=== PATIENT | female | born 1970 | race Two or more races ===

== ENCOUNTER 2017-05-17 21:39 | Emergency (ER) | payer OTHER ==
[~2017-05-17] VITALS: Ht 144.8 cm; Wt 68.0 kg
[~2017-05-17 21:39] MED LIST: cloNIDine HCL 0.1 MG TAB ONE
[2017-05-17] MEDS ORDERED: cloNIDine HCL 0.1 MG TAB PO ONE (22:00)
[2017-05-17 22:10] LABS: Basophils # (auto) 0 uL; Basophils % (auto) 0.6 % (0.0-2.0); Eosinophils # (auto) 0.1 uL; Eosinophils % (auto) 0.7 % (0.0-7.0); Hemoglobin 14.1 g/dL (12.2-16.2); Lymphocytes # (auto) 3.3 uL; Lymphocytes % (auto) 46.6 % (10.0-50.0); Mean Corpuscular Hemoglobin 30.4 pg (28.0-32.0); Mean Corpuscular Hgb Conc. 34.4 g/dL (32.0-36.0); Mean Corpuscular Volume 88.6 fL (80.0-100.0); Mean Platelet Volume 7.9 fL (6.9-10.8); Monocytes # (auto) 0.5 uL; Monocytes % (auto) 7.5 % (0.0-12.0); Neutrophils # (auto) 3.2 uL; Neutrophils % (auto) 44.6 % (37.0-80.0); Nucleated Red Blood Cells % 0.2 %; Platelet Count (auto) 269 10^3/uL (140-450); Red Cell Distribution Width 13.6 % (11.8-14.3); White Blood Cell 7.1 10^3/uL (4.4-10.8)
[2017-05-17 22:37] LABS: Albumin 3.8 g/dL (3.4-5.0); Alkaline Phosphatase 150 U/L (45-117); Anion Gap 13 (5-15); Aspartate Aminotransferase 30 U/L (15-37); BUN/Creatinine Ratio 26.5; Bilirubin, Total 0.2 mg/dL (0.2-1.0); Blood Urea Nitrogen 18 mg/dL (7-18); Calcium 8.6 mg/dL (8.5-10.1); Carbon Dioxide 20 mmol/L (21-32); Chloride 106 mmol/L (98-107); GFR African American 118 mL/min; GFR Non-African American 98 mL/min; Glucose 137 mg/dL (74-106); Magnesium 2.1 mg/dL (1.6-2.6); Potassium 3.5 mmol/L (3.5-5.1); Sodium 139 mmol/L (136-145); Total Protein 8.2 g/dL (6.4-8.2)
[2017-05-18 02:34] VITALS: BP 137/77
== END 2017-05-18 06:13 | disposition home or self-care (01) ==
LOC: ER 21:39
DX: R07.89 Other chest pain (principal); I10 Essential (primary) hypertension
CPT/HCPCS: 36415; 71010; 80053; 83735; 84484; 84702; 85025; 93005

== ENCOUNTER 2023-01-29 00:31 | Emergency (ER) | payer OTHER ==
[~2023-01-29] VITALS: Ht 144.8 cm; Wt 60.2 kg
[2023-01-29] MEDS ORDERED: amLODIPine BESYLATE 5 MG TAB PO ONE ×2 (01:00→02:30)
[2023-01-29 01:02] LABS: Basophils # (auto) 0 10 ^3/uL (0-0.2); Basophils % (auto) 0.3 % (0.0-2.0); Eosinophils # (auto) 0.1 10 ^3/uL (0-0.8); Eosinophils % (auto) 0.9 % (0.0-7.0); Hematocrit 39.4 % (36.0-46.0); Hemoglobin 13.4 g/dL (12.2-16.2); Lymphocytes % (auto) 35.2 % (10.0-50.0); Mean Corpuscular Hemoglobin 30.1 pg (28.0-32.0); Mean Corpuscular Volume 88.8 fL (80.0-100.0); Monocytes # (auto) 0.7 10 ^3/uL (0-1.3); Monocytes % (auto) 8.2 % (0.0-12.0); Neutrophils # (auto) 4.7 10 ^3/uL (1.6-8.6); Neutrophils % (auto) 55.4 % (37.0-80.0); Nucleated Red Blood Cells % 0.2 %; Red Blood Cells 4.43 10^6/uL (4.0-5.20); Red Cell Distribution Width 13.6 % (11.8-14.3); White Blood Cell 8.6 10^3/uL (4.4-10.8)
[2023-01-29 01:19] LABS: Albumin 3.7 g/dL (3.4-5.0); Calcium 9.8 mg/dL (8.5-10.1); Potassium 3.6 mmol/L (3.5-5.1)
[2023-01-29 01:21] VITALS: PULSE 75; RESP 75; TEMP 98.3; O2SAT 95
[2023-01-29 01:24] LABS: Bilirubin, Total 0.2 mg/dL (0.2-1.0)
[2023-01-29] MEDS ORDERED: HYDROmorphone HCL 2 MG/ML VL/or syr IV ONE (01:30)
[2023-01-29] MEDS ORDERED: ONDANSETRON HCL 4 MG/2 ML VIAL IV ONE (01:30)
[2023-01-29] MEDS ORDERED: ASPirin 81 mg TAB PO ONE (01:30)
[2023-01-29 04:00] VITALS: BP 157/79; PULSE 66; RESP 16; O2SAT 95
== END 2023-01-29 04:29 | disposition home or self-care (01) ==
LOC: ER 00:33
DX: I10 Essential (primary) hypertension (principal)
CPT/HCPCS: 36415; 71045; 80053; 82962; 83880; 84484; 85025; 93005; 96374; 96375; 99285; J1170; J2405

== ENCOUNTER 2024-05-13 06:02 | Inpatient (IN) | payer OTHER ==
[~2024-05-13] VITALS: Ht 144.8 cm; Wt 61.6 kg
[2024-05-13] VITALS (8 sets, daily range): BP systolic 134–167; BP diastolic 60–76; PULSE 62–79; RESP 16–18; TEMP 97.7–98.3; O2SAT 94–100
--- NOTE | 2024-05-13 06:41 | ED.PDOC ---
GI ASSESSMENT HPI Comments 54Y F with PMHx HTN and prediabetes presents to ED for chief complaint abd pain x4days. Pt describes pain as sharp and stabbing, with pain level 10/10. Additional symptoms include nausea, vomiting, diarrhea, poor appetite, and dizziness. Pt recently finished abx Macrobid for UTI last week. Pt was then seen at yesterday where she was told she may have diverticulitis and still has a UTI. Pt was referred to ER. Pt was provided with Cipro to take at home by urgent care yesterday. No known allergies. Chief Complaint: Abdominal Pain Time Seen by MD: 06:12 Reviewed Notes: Medications, Allergies Allergies: Coded Allergies: NO KNOWN ALLERGIES (Unverified , 01/29/23) Information Source: Patient, Relative (daughter) Mode of Arrival: Ambulatory Timing: Days Duration: Since onset Quality: Sharp, Stabbing Vomitus: Watery Stool: Watery Severity: Moderate Recent: Antibiotics Recent Hx of: None Pain Location: Epigastric, RUQ, LUQ Modifying Factors: Nothing Associated sign and symptoms: Nausea, Vomiting, Diarrhea, Abdominal Pain Past Medical History PAST MEDICAL HISTORY: HTN Past Medical History (Other): prediabetes Surgical History: Denies all surgeries BACK DIGGER OPERATOR History: No Pertinent BACK DIGGER OPERATOR History Family History Family History: Unknown Social History Smoker: Non-Smoker Alcohol: Occasionally Drugs: Denies Drug Use Lives In: Home Constitutional: denies: chills, diaphoresis, fatigue, fever, malaise, sweats, weakness, others EENTM: denies: blurred vision, double vision, ear bleeding, ear discharge, ear drainage, ear pain, ear ringing, eye pain, eye redness, hearing loss, mouth pain, mouth swelling, nasal discharge, nose bleeding, nose congestion, nose pain, photophobia, tearing, throat pain, throat swelling, voice changes, others Respiratory: denies: cough, hemoptysis, orthopnea, SOB at rest, shortness of breath, SOB with excertion, stridor, wheezing, others Cardiovascular: denies: chest pain, dizzy spells, diaphoresis, Dyspnea on ex ertion, edema, irregular heart beat, left arm pain, lightheadedness, palpitations, PND, syncope, others Gastrointestinal: reports: abdominal pain, diarrhea, nausea, poor appetite, vomiting; denies: abdomen distended, blood streaked bowels, constipated, dysp hagia, difficulty swallowing, hematemesis, melena, poor fluid intake, rectal bleeding, rectal pain, others Genitourinary: denies: abnormal vagina bleeding, burning, dyspareunia, dysuria, flank pain, frequency, hematuria, incontinence, pain, , vagina discharge, urgency, others Neurological: reports: dizziness; denies: fainting, headache, left sided numbness, left sided weakness, numbness, paresthesia, pre-existing deficit, right sided numbness, right sided weakness, seizure, speech problems, tingling, tremors, weakness, others Musculoskeletal: denies: back pain, gout, joint pain, joint swelling, muscle pain, muscle stiffness, neck pain, others Integumetry: denies: bruises, change in color, change in hair/nails, dryness, laceration, lesions, lumps, rash, wounds, others Allergic/Immunocompromised: denies: Difficulty Healing, Frequent Infections, Hives, Itching, others Hematologic/Lymphatic: denies: anemia, blood clots, easy bleeding, easy bruising, swollen glands, others Endocrine: denies: excessive hunger, excessive sweating, excessive thirst, excessive urination, flushing, intolerance to cold, intolerance to heat, unexplained weight gain, unexplained weight loss, others Psychiatric: denies: anxiety, bipolar disorder, depression, hopeless, panic disorder, schizophrenia, sleepless, suicidal, others All Other Systems: Reviewed and Negative Physical Exam General Appearance: Mild Distress, Normal HEENT: Normal ENT Inspection, Pharynx Normal, TMs Normal Neck: Full Range of Motion, Non-Tender, Normal, Normal Inspection Respiratory: Chest Non-Tender, Lungs Clear, No Accessory Muscle Use, No Respiratory Distress, Normal Breath Sounds Cardiovascular: No Edema, No JVD, No Murmur, No Gallop, Normal Peripheral Pulses, Regular Rate/Rhythm Breast Exam: Deferred Gastrointestinal: Epigastric, RUQ, Tenderness Genitalia: Deferred Pelvic: Deferred Rectal: Deferred Extremities: No calf tenderness, Normal capillary refill, Normal inspection, Normal range of motion, Non-tender, No pedal edema Musculoskeletal : Apperance: Normal Neurologic: Alert, car knocker II-XII nml as Tested, No Motor Deficits, Normal Affect, Normal Mood, No Sensory Deficits Cerebellar Function: Normal Reflexes: Normal Skin: Dry, Normal Color, Warm Lymphatic: No Adenopathy Was a procedure done? Was a procedure done?: No GI differential Dx Differential Diagnosis: Cholecystitis, Diverticular disease, Gastritis/PUD, Gastroenteritis, GI hemorrhage, Hernia, Hepatitis, Inflammatory BD, Ischemic Bowel, Pancreatitis, Urinary Obstruction, UTI, Urolithiasis, Dehydration, Diabetes/ DKA, Electrolyte Imbalance, Food Poisoning, Bacterial, Parasitic, Viral, Hypovolemia, Impaction, Malnutrition, Renal Failure, Ischemic Bowel, Mass, Anemia, Stress Ulcer, Kidney Stone X-Ray, Labs, Meds, VS Vital Signs Date Time Temp Pulse Resp B/P (MAP) Pulse Ox O2 Delivery O2 Flow Rate FiO2 05/13/24 06:50 79 16 98 Room Air* 0 21 05/13/24 06:50 98.4 79 16 152/81 (104) 98 98.4 05/13/24 06:09 98.9 113 16 187/94 (125) 97 Lab Test 05/13/24 06:34 05/13/24 06:15 Range/Units White Blood Count 8.0 4.4-10.8 10^3/uL Red Blood Count 4.42 4.0-5.20 10^6/uL Hemoglobin 13.1 12.2-16.2 g/dL Hematocrit 38.9 36.0-46.0 % Mean Corpuscular Volume 88.0 80.0-100.0 fL Mean Corpuscular Hemoglobin 29.7 28.0-32.0 pg Mean Corpuscular Hemoglobin Concent 33.8 32.0-36.0 g/dL Red Cell Distribution Width 13.4 11.8-14.3 % Platelet Count 293 140-450 10^3/uL Mean Platelet Volume 8.8 6.9-10.8 fL Neutrophils (%) (Auto) 66.9 37.0-80.0 % Lymphocytes (%) (Auto) 24.2 10.0-50.0 % Monocytes (%) (Auto) 8.2 0.0-12.0 % Eosinophils (%) (Auto) 0.4 0.0-7.0 % Basophils (%) (Auto) 0.3 0.0-2.0 % Neutrophils # (Auto) 5.4 1.6-8.6 10 ^3/uL Lymphocytes # (Auto) 1.9 0.4-5.4 10 ^3/uL Monocytes # (Auto) 0.7 0-1.3 10 ^3/uL Eosinophils # (Auto) 0 0-0.8 10 ^3/uL Basophils # (Auto) 0 0-0.2 10 ^3/uL Nucleated Red Blood Cells 0.0 % Sodium Level 142 136-145 mmol/L Potassium Level 4.0 3.5-5.1 mmol/L Chloride Level 109 H 98-107 mmol/L Carbon Dioxide Level 24 20-31 mmol/L Anion Gap 9 5-15 Blood Urea Nitrogen 9 9-23 mg/dL Creatinine 0.75 0.550-1.02 mg/dL Glomerular Filtration Rate Calc 93 >90 mL/min BUN/Creatinine Ratio 12.0 10.0-20.0 Serum Glucose 119 H 74-106 mg/dL Calcium Level 9.6 8.7-10.4 mg/dL Total Bilirubin 0.4 0.2-1.0 mg/dL Aspartate Amino Transferase (AST) 28 13-40 U/L Alanine Aminotransferase (ALT) 37 7-40 U/L Alkaline Phosphatase 116 46-116 U/L Total Protein 7.0 5.7-8.2 g/dL Albumin 4.1 3.2-4.8 g/dL Lipase 41 12-53 U/L Beta HCG, Quantitative 7.0 H 1.5-4.2 mIU/mL Urine Color Pending Urine Clarity Pending Urine pH Pending Urine Specific [place] Pending Urine Protein Pending Urine Ketones Pending Urine Blood Pending Urine Nitrite Pending Urine Bilirubin Pending Urine Urobilinogen Pending Urine Leukocyte Esterase Pending Urine RBC Pending Urine WBC Pending Urine Squamous Epithelial Cells Pending Urine Bacteria Pending Urine Glucose Pending POC Glucose 115 H 70-106 mg/dl Current Medications Medications (Trade) Dose Ordered Sig/Stefano Route Start Time Stop Time Status Last Admin Ondansetron HCl (Zofran Po) 4 mg ONCE ONCE PO 05/13/24 06:30 05/13/24 06:31 DC 05/13/24 06:51 Ketorolac Tromethamine (Toradol Injection) 15 mg ONCE ONCE IV 05/13/24 06:30 05/13/24 06:31 DC 05/13/24 06:54 Acetaminophen/ Hydrocodone Bitart ([place] 5/325MG Tab) 1 tab ONCE ONCE PO 05/13/24 06:30 05/13/24 06:31 DC 05/13/24 06:[address] [address] Ph: [phone] DIAGNOSTIC IMAGING Diagnostic Imaging Report : [id number] Signed PATIENT: GEORGE SIMMSCT: [id number] UNIT: [id number] : 1970 LOC: ER ROOM / BED: / AGE / SEX: 54 / F ADM STATUS: REG ER SERVICE 9 ORDERING PHYSICIAN: SOBEIDA MARINELLI MD PROCEDURE(s): GBUS - GALLBLADDER REASON: ruq pain ORDER NUMBER(s): [id number], ACCESSION NUMBER(s): [id number] INDICATION: ruq pain TECHNIQUE: Multiple real-time sonographic images were obtained of the right upper quadrant. COMPARISON: None FINDINGS: The liver demonstrates homogeneous echotexture without focal mass lesions. The liver measures 11.5 cm. There is no intrahepatic or extrahepatic ductal dilatation. The common duct measures 0.3 cm. The gallbladder is without evidence of stone or sludge. The gallbladder wall measures 0.1 cm and is within normal limits. The right kidney measures 8.5 cm. The right kidney is normal in contour, size, and shape. The echogenicity is normal. There is no hydronephrosis. The pancreas is not well visualized due to overlying bowel gas. IMPRESSION: Unremarkable right upper quadrant sonogram. ATED BY: CHINO MCCRACKEN MD DICTATED DATE/TIME: 05/13/24810 SIGNED BY: CHINO MCCRACKEN MD SIGNED DATE/TIME: 05/13/24810 CC: [address] [address] Ph: [phone] DIAGNOSTIC IMAGING Diagnostic Imaging Report : [id number] Signed PATIENT: GEORGE SIMMSCT: [id number] UNIT: [id number] : 1970 LOC: ER ROOM / BED: / AGE / SEX: 54 / F ADM STATUS: REG ER SERVICE 7 ORDERING PHYSICIAN: SOBEIDA MARINELLI MD PROCEDURE(s): ABPL - CT AB PEL WO CON-NO ORAL OR IV REASON: pain ORDER NUMBER(s): [id number], ACCESSION NUMBER(s): [id number] EXAM: CT Abdomen and Pelvis Without Intravenous Contrast CLINICAL INDICATION: pain TECHNIQUE: Axial computed tomography images of the abdomen and pelvis without intravenous contrast. This CT exam was performed using one or more of the following dose reduction techniques: automated exposure control, adjustment of the mA and/or kV according to patient size, and/or use of iterative reconstruction technique. RADIATION DOSE: CTDlvol= 7 mGy, DLP= 334.36 mGy-cm COMPARISON: None FINDINGS: LUNG BASES: Unremarkable. No mass. No consolidation. MEDIASTINUM: Small esophageal hiatal hernia. ABDOMEN: LIVER: Unremarkable. GALLBLADDER AND BILE DUCTS: Unremarkable. No calcified stones. No ductal dilation. PANCREAS: Unremarkable. No ductal dilation. SPLEEN: Unremarkable. No splenomegaly. ADRENALS: Unremarkable. No mass. KIDNEYS AND URETERS: Unremarkable. No stones within either kidney. No hydronephrosis. STOMACH AND BOWEL: Unremarkable. No obstruction. No mucosal thickening. PELVIS: APPENDIX: Normal appendix. BLADDER: Unremarkable. No stones. REPRODUCTIVE: Unremarkable as visualized. ABDOMEN and PELVIS: INTRAPERITONEAL SPACE: Unremarkable. No free air. No significant fluid collection. BONES/JOINTS: No acute fracture. No dislocation. SOFT TISSUES: Umbilical hernia containing fat. VASCULATURE: Unremarkable. No abdominal aortic aneurysm. LYMPH NODES: Unremarkable. No enlarged lymph nodes. OTHER FINDINGS: . . IMPRESSION: 1. Normal appendix. 2. Small esophageal hiatal hernia. 3. Umbilical hernia containing fat. 4. No obstructive uropathy. HS:Y ATED BY: LINDA NEWBERRY MD DICTATED DATE/TIME: 05/13/24923 SIGNED BY: LINDA NEWBERRY MD SIGNED DATE/TIME: 05/13/24923 CC: Time of 1ST Reevaluation: 06:42 Reevaluation 1ST: Unchanged Time of 2ND Reevaluation: 10:08 Reevaluation 2ND: Unchanged Patient Education/Counseling: Diagnosis, Treatment Family Education/Counseling: Diagnosis, Treatment Additional Information Tests ordered and results reviewed: CBC, CMP, lipase, beta hcg, UA, gallbladder u/s, CT abd/pelvis WO contrast Independent historians include: Daughter. Dr. Marinelli interpreted each of the tests and agrees with the result. Results and treatment discussed with the pt/family members and medical personnel. pt remains uncomfortable. family is also concerned that pt has not been able to keep anything down in days. i will admit the pt for further evaluation for the intractable pain and anorexia Departure 1 Departure Time of Disposition: 10:07 Impression: Primary Impression: Intractable abdominal pain Additional Impression: Anorexia Disposition: ADMITTED INPATIENT Condition: Stable Additional Instructions: [place] [address] Ph: [phone] DIAGNOSTIC IMAGING Diagnostic Imaging Report : [id number] Signed PATIENT: ROMIE SIMMS ACCT: [id number] UNIT: [id number] : 1970 LOC: ER ROOM / BED: / AGE / SEX: 54 / F ADM STATUS: REG ER SERVICE 9 ORDERING PHYSICIAN: SOBEIDA MARINELLI MD PROCEDURE(s): GBUS - GALLBLADDER REASON: ruq pain ORDER NUMBER(s): [id number], ACCESSION NUMBER(s): [id number] INDICATION: ruq pain TECHNIQUE: Multiple real-time sonographic images were obtained of the right upper quadrant. COMPARISON: None FINDINGS: The liver demonstrates homogeneous echotexture without focal mass lesions. The liver measures 11.5 cm. There is no intrahepatic or extrahepatic ductal dilatation. The common duct measures 0.3 cm. The gallbladder is without evidence of stone or sludge. The gallbladder wall measures 0.1 cm and is within normal limits. The right kidney measures 8.5 cm. The right kidney is normal in contour, size, and shape. The echogenicity is normal. There is no hydronephrosis. The pancreas is not well visualized due to overlying bowel gas. IMPRESSION: Unremarkable right upper quadrant sonogram. ATED BY: CHINO MCCRACKEN MD DICTATED DATE/TIME: 05/13/24810 SIGNED BY: CHINO MCCRACKEN MD SIGNED DATE/TIME: 05/13/24810 CC: [place] [address] Ph: [phone] DIAGNOSTIC IMAGING Diagnostic Imaging Report : [id number] Signed PATIENT: ROMIE SIMMS ACCT: [id number] UNIT: [id number] : 1970 LOC: ER ROOM / BED: / AGE / SEX: 54 / F ADM STATUS: REG ER SERVICE 7 ORDERING PHYSICIAN: SOBEIDA MARINELLI MD PROCEDURE(s): ABPL - CT AB PEL WO CON-NO ORAL OR IV REASON: pain ORDER NUMBER(s): [id number], ACCESSION NUMBER(s): [id number] EXAM: CT Abdomen and Pelvis Without Intravenous Contrast CLINICAL INDICATION: pain TECHNIQUE: Axial computed tomography images of the abdomen and pelvis without intravenous contrast. This CT exam was performed using one or more of the following dose reduction techniques: automated exposure control, adjustment of the mA and/or kV according to patient size, and/or use of iterative reconstruction technique. RADIATION DOSE: CTDlvol= 7 mGy, DLP= 334.36 mGy-cm COMPARISON: None FINDINGS: LUNG BASES: Unremarkable. No mass. No consolidation. MEDIASTINUM: Small esophageal hiatal hernia. ABDOMEN: LIVER: Unremarkable. GALLBLADDER AND BILE DUCTS: Unremarkable. No calcified stones. No ductal dil ation. PANCREAS: Unremarkable. No ductal dilation. SPLEEN: Unremarkable. No splenomegaly. ADRENALS: Unremarkable. No mass. KIDNEYS AND URETERS: Unremarkable. No stones within either kidney. No hydronephrosis. STOMACH AND BOWEL: Unremarkable. No obstruction. No mucosal thickening. PELVIS: APPENDIX: Normal appendix. BLADDER: Unremarkable. No stones. REPRODUCTIVE: Unremarkable as visualized. ABDOMEN and PELVIS: INTRAPERITONEAL SPACE: Unremarkable. No free air. No significant fluid collection. BONES/JOINTS: No acute fracture. No dislocation. SOFT TISSUES: Umbilical hernia containing fat. VASCULATURE: Unremarkable. No abdominal aortic aneurysm. LYMPH NODES: Unremarkable. No enlarged lymph nodes. OTHER FINDINGS: . . IMPRESSION: 1. Normal appendix. 2. Small esophageal hiatal hernia. 3. Umbilical hernia containing fat. 4. No obstructive uropathy. HS:Y ATED BY: LINDA NEWBERRY MD DICTATED DATE/TIME: 05/13/24923 SIGNED BY: LINDA NEWBERRY MD SIGNED DATE/TIME: 05/13/24923 CC: Critical Care Note Critical Care Time?: No Stability Stability form required: No I personally scribed for SOBEIDA MARINELLI MD ([facility]) on 05/13/24 at 06:41. Electronically submitted by Lizette Simms ([facility]). I personally scribed for SOBEIDA MARINELLI MD ([facility]) on 05/13/24 at 08:17. Electronically submitted by Lizette Simms ([facility]). I personally scribed for SOBEIDA MARINELLI MD ([facility]) on 05/13/24 at 09:30. Electronically [facility] Simms ([facility] I personally scribed for SOBEIDA MARINELLI MD ([facility]) on 05/13/24 at 09:38. Electronically submitted by Lizette Simms ([facility]). SOBEIDA MARINELLI MD May 13, 2024 06:41
[2024-05-13] MEDS: ONDANSETRON ODT 4 MG TAB PO ONE (06:51)
[2024-05-13] MEDS: KETOROLAC TROMETH 30 MG/ML 1ML VIAL IV ONE (06:54)
[2024-05-13] MEDS: HYDROcodone-ACET 5/325MG TAB PO ONE (06:54)
[2024-05-13 07:13] LABS: Basophils # (auto) 0 10 ^3/uL (0-0.2); Basophils % (auto) 0.3 % (0.0-2.0); Eosinophils # (auto) 0 10 ^3/uL (0-0.8); Eosinophils % (auto) 0.4 % (0.0-7.0); Hematocrit 38.9 % (36.0-46.0); Hemoglobin 13.1 g/dL (12.2-16.2); Lymphocytes # (auto) 1.9 10 ^3/uL (0.4-5.4); Lymphocytes % (auto) 24.2 % (10.0-50.0); Mean Corpuscular Hemoglobin 29.7 pg (28.0-32.0); Mean Corpuscular Hgb Conc. 33.8 g/dL (32.0-36.0); Monocytes # (auto) 0.7 10 ^3/uL (0-1.3); Monocytes % (auto) 8.2 % (0.0-12.0); Neutrophils # (auto) 5.4 10 ^3/uL (1.6-8.6); Neutrophils % (auto) 66.9 % (37.0-80.0); Platelet Count (auto) 293 10^3/uL (140-450); Red Blood Cells 4.42 10^6/uL (4.0-5.20); Red Cell Distribution Width 13.4 % (11.8-14.3)
[2024-05-13 08:11] LABS: Alanine Aminotransferase 37 U/L (7-40); Albumin 4.1 g/dL (3.2-4.8); Alkaline Phosphatase 116 U/L (46-116); Anion Gap 9 (5-15); Aspartate Aminotransferase 28 U/L (13-40); Bilirubin, Total 0.4 mg/dL (0.2-1.0); Blood Urea Nitrogen 9 mg/dL (9-23); Calcium 9.6 mg/dL (8.7-10.4); Carbon Dioxide 24 mmol/L (20-31); Chloride 109 mmol/L (98-107); Glucose 119 mg/dL (74-106); Sodium 142 mmol/L (136-145)
--- NOTE | 2024-05-13 08:15 | DVH ---
INDICATION: ruq pain TECHNIQUE: Multiple real-time sonographic images were obtained of the right upper quadrant. COMPARISON: None FINDINGS: The liver demonstrates homogeneous echotexture without focal mass lesions. The liver measu res 11.5 cm. There is no intrahepatic or extrahepatic ductal dilatation. The common duct measures 0.3 cm. The gallbladder is without evidence of stone or sludge. The gallbladder wall measures 0.1 cm and is within normal limits. The right kidney measures 8.5 cm. The right kidney is normal in contour, size, and shape. The echog enicity is normal. There is no hydronephrosis. The pancreas is not well visualized due to overlying bowel gas. IMPRESSION: Unremarkable right upper quadrant sonogram.
--- NOTE | 2024-05-13 09:26 | DVH ---
EXAM: CT Abdomen and Pelvis Without Intravenous Contrast CLINICAL INDICATION: pain TECHNIQUE: Axial computed tomography images of the abdomen and pelvis without intravenous contrast. This CT exam was performed using one or more of the following dose reduction techniques: automated exposure control, adjustment of the mA and/or kV according to patient size, and/or use of iterative r econstruction technique. RADIATION DOSE: CTDlvol= 7 mGy, DLP= 334.36 mGy-cm COMPARISON: None FINDINGS: LUNG BASES: Unremarkable. No mass. No consolidation. MEDIASTINUM: Small esophageal hiatal hernia. ABDOMEN: LIVER: Unremarkable. GALLBLADDER AND BILE DUCTS: Unremarkable. No calcified stones. No ductal dilation. PANCREAS: Unremarkable. No ductal dilation. SPLEEN: Unremarkable. No splenomegaly. ADRENALS: Unremarkable. No mass. KIDNEYS AND URETERS: Unremarkable. No stones within either kidney. No hydronephrosis. STOMACH AND BOWEL: Unremarkable. No obstruction. No mucosal thickening. PELVIS: APPENDIX: Normal appendix. BLADDER: Unremarkable. No stones. REPRODUCTIVE: Unremarkable as visualized. ABDOMEN and PELVIS: INTRAPERITONEAL SPACE: Unremarkable. No free air. No significant fluid collection. BONES/JOINTS: No acute fracture. No dislocation. SOFT TISSUES: Umbilical hernia containing fat. VASCULATURE: Unremarkable. No abdominal aortic aneurysm. LYMPH NODES: Unremarkable. No enlarged lymph nodes. OTHER FINDINGS: . . IMPRESSION: 1. Normal appendix. 2. Small esophageal hiatal hernia. 3. Umbilical hernia containing fat. 4. No obstructive uropathy. HS:Y
[2024-05-13 10:07] LABS: Urine Bacteria None Seen /hpf (None Seen)
[2024-05-13 10:15] LABS: Urine Blood Negative /uL (Negative); Urine Clarity Clear (Clear); Urine Color Light-Yellow (Yellow); Urine Mucus FEW (None Seen); Urine Protein, UAD Negative (Negative); Urine Specific Gravity 1.016 (1.001-1.035); Urine Urobilinogen Normal (Negative); Urine WBC 2 /hpf (0 - 5); Urine pH 6.5 (5.0-9.0)
[2024-05-13] MEDS ORDERED: LORazepam 0.5 MG TAB PO PRN (11:15)
[2024-05-13] MEDS ORDERED: DEXTROSE (50%) 50ML SYRG IV PRN (11:15)
[2024-05-13] MEDS ORDERED: DOCUSATE SOD 100 MG CAP PO PRN (11:15)
[2024-05-13] MEDS: SODIUM CHLORIDE 0.9% 1,000 ML IV SCH (11:15)
[2024-05-13] MEDS ORDERED: TEMAZEPAM 15 MG CAP PO PRN (11:15)
[2024-05-13] MEDS: InsuLIN REG 1unit/0.01ml Soln (100units/ml) SC SCH (12:00)
[2024-05-13] MEDS: ACCU-CHEK COMFORT CURVE STRIP VI SCH (12:14)
[2024-05-13] MEDS: MORPHINE SULFATE INJ 2 MG/ml SYRG IV PRN (14:16)
[2024-05-14] VITALS (9 sets, daily range): BP systolic 150–186; BP diastolic 68–94; PULSE 55–150; RESP 15–71; TEMP 97.1–98.5; O2SAT 92–100
[2024-05-14] MEDS: HYDROcodone-ACET 5/325MG TAB PO PRN (02:07)
[2024-05-14] MEDS ORDERED: OMEP20TA PO (04:49)
[2024-05-14] MEDS ORDERED: METO-289 PO (04:49)
[2024-05-14] MEDS ORDERED: LOSA100T33 PO (04:49)
[2024-05-14 06:44] LABS: Basophils # (auto) 0 10 ^3/uL (0-0.2); Basophils % (auto) 0.4 % (0.0-2.0); Eosinophils # (auto) 0.1 10 ^3/uL (0-0.8); Eosinophils % (auto) 1.9 % (0.0-7.0); Hematocrit 35.7 % (36.0-46.0); Hemoglobin 12.2 g/dL (12.2-16.2); Lymphocytes # (auto) 2.5 10 ^3/uL (0.4-5.4); Lymphocytes % (auto) 35.2 % (10.0-50.0); Mean Corpuscular Hemoglobin 30.3 pg (28.0-32.0); Mean Corpuscular Hgb Conc. 34.2 g/dL (32.0-36.0); Mean Corpuscular Volume 88.7 fL (80.0-100.0); Monocytes # (auto) 0.5 10 ^3/uL (0-1.3); Monocytes % (auto) 7.6 % (0.0-12.0); Neutrophils # (auto) 3.9 10 ^3/uL (1.6-8.6); Neutrophils % (auto) 54.9 % (37.0-80.0); Nucleated Red Blood Cells % 0.1 %; Platelet Count (auto) 244 10^3/uL (140-450); Red Blood Cells 4.02 10^6/uL (4.0-5.20); Red Cell Distribution Width 13.6 % (11.8-14.3)
[2024-05-14 06:56] LABS: Chloride 107 mmol/L (98-107); Potassium 3.9 mmol/L (3.5-5.1); Sodium 141 mmol/L (136-145)
[2024-05-14 06:57] LABS: Anion Gap 8 (5-15); Calcium 9.2 mg/dL (8.7-10.4); Carbon Dioxide 26 mmol/L (20-31)
[2024-05-14 07:02] LABS: BUN/Creatinine Ratio 15.5 (10.0-20.0); Blood Urea Nitrogen 11 mg/dL (9-23); Glucose 108 mg/dL (74-106)
--- NOTE | 2024-05-14 15:53 | DVHPN2 ---
Subjective Follow up on intractable abdominal pain CT abdomen and pelvis shows no evidence of any acute pathology, gallbladder ultrasound is unremarkable . Reviewed: Care Plan Changes from previous H/P or p: No Changes Objective Vitals Vital Signs Date Time Temp Pulse Resp B/P (MAP) Pulse Ox O2 Delivery O2 Flow Rate FiO2 05/14/24 13:00 98.0 69 15 174/81 (112) 94 98.0 05/13/24 22:34 Room Air* 0 21 Intake/Output Intake and Output 05/14/24 07:00 Intake Total 750 ml Balance 750 ml Intake Oral 750 ml # Voids 6 Exam HEENT pupils are reactive Neck is supple CV is S1-S2 regular rate and rhythm Respiratory diminished breath sound bases GI posterior bowel sound Extremity no edema CLINICAL SERVICES SPECIALIST no motor deficit Medications Current Medications Medications Dose Ordered Sig/Stefano Route Start Time Stop Time Status Last Admin Dose Admin Diagnostic Test (Pha) 1 strip IQ4HR 05/13/24 12:00 05/14/24 11:22 1 STRIP Insulin Human Regular IQ4HR SC 05/13/24 12:00 Dextrose 50 ml UD PRN IV 05/13/24 11:15 Sodium Chloride 1,000 ml @ 60 mls/hr [id number] IV 05/13/24 11:15 05/13/24 23:47 60 MLS/HR Lorazepam 0.5 mg Q6HP PRN PO 05/13/24 11:15 Al Hydrox/Mg Hydrox/Simethicone 30 ml Q6HP PRN PO 05/13/24 11:15 Docusate Sodium 100 mg BIDPRN PRN PO 05/13/24 11:15 Acetaminophen 650 mg Q6HP PRN PO 05/13/24 11:15 Temazepam 15 mg QHSP PRN PO 05/13/24 11:15 Acetaminophen/ Hydrocodone Bitart 1 tab Q4HP PRN PO 05/13/24 11:15 05/14/24 09:05 1 TAB Ondansetron HCl 4 mg Q4HP PRN IV 05/13/24 11:15 Morphine Sulfate 2 mg Q4HPRN PRN IV 05/13/24 11:15 05/13/24 14:16 2 MG Laboratory Results Laboratory Tests 05/14/24 06:03 Chemistry Test 05/14/24 06:03 Calcium Level 9.2 mg/dL (8.7-10.4) Urinalysis Test 05/13/24 06:15 Urine Color Light-yellow (Yellow) Urine Clarity Clear (Clear) Urine pH 6.5 (5.0-9.0) Urine Specific [place] 1.016 (1.001-1.035) Urine Protein Negative (Negative) Urine Ketones Negative (Negative) Urine Blood Negative /uL (Negative) Urine Nitrite Negative (Negative) Urine Bilirubin Negative (Negative) Urine Urobilinogen Normal mg/dL (Negative) Urine Leukocyte Esterase Negative /uL (Negative) Urine RBC <1 /hpf (0 - 4) Urine WBC 2 /hpf (0 - 5) Urine Squamous Epithelial Cells Few /hpf (<5) Urine Bacteria None seen /hpf (None Seen) Urine Mucus Few (None Seen) Urine Glucose Normal mg/dL (Normal) Assessment/Plan Assessment/Plan 54 year female with a known history of hypotension knee systems with the hospital with a donor pain and loss of appetite found to have 1. Intractable abdominal pain 2. Nausea vomiting resolved 3. Hypertension 4. Anorexia -diet as tolerated, discharge plan Plan discussed with: Patient Problem List: (1) Hypertension (2) Anorexia (3) Intractable abdominal pain Date of Service: May 14, 2024 Billing Provider: PETAR MELENDEZ MD Common Visit Codes: [id number] INP/OBS CARE(MOD) PETAR MELENDEZ MD May 14, 2024 15:53
[2024-05-15] VITALS (8 sets, daily range): BP systolic 99–160; BP diastolic 61–79; PULSE 58–89; RESP 16–18; TEMP 97.7–98.7; O2SAT 94–100
[2024-05-15] MEDS: cloNIDine HCL 0.1 MG TAB PO ONE (00:18)
--- NOTE | 2024-05-15 16:43 | DVHPN2 ---
Subjective Follow up on intractable abdominal pain CT abdomen and pelvis shows no evidence of any acute pathology, gallbladder ultrasound is unremarkable . 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 Medications Current Medications Medications Dose Ordered Sig/Stefano Route Start Time Stop Time Status Last Admin Dose Admin Diagnostic Test (Pha) 1 strip IQ4HR 05/13/24 12:00 05/14/24 11:22 1 STRIP Insulin Human Regular IQ4HR SC 05/13/24 12:00 Dextrose 50 ml UD PRN IV 05/13/24 11:15 Sodium Chloride 1,000 ml @ 60 mls/hr [id number] IV 05/13/24 11:15 05/13/24 23:47 60 MLS/HR Lorazepam 0.5 mg Q6HP PRN PO 05/13/24 11:15 Al Hydrox/Mg Hydrox/Simethicone 30 ml Q6HP PRN PO 05/13/24 11:15 Docusate Sodium 100 mg BIDPRN PRN PO 05/13/24 11:15 Acetaminophen 650 mg Q6HP PRN PO 05/13/24 11:15 Temazepam 15 mg QHSP PRN PO 05/13/24 11:15 Acetaminophen/ Hydrocodone Bitart 1 tab Q4HP PRN PO 05/13/24 11:15 05/15/24 10:40 1 TAB Ondansetron HCl 4 mg Q4HP PRN IV 05/13/24 11:15 Morphine Sulfate 2 mg Q4HPRN PRN IV 05/13/24 11:15 05/13/24 14:16 2 MG Laboratory Results Laboratory Tests 05/14/24 06:03 Urinalysis Test 05/13/24 06:15 Urine Color Light-yellow (Yellow) Urine Clarity Clear (Clear) Urine pH 6.5 (5.0-9.0) Urine Specific [place] 1.016 (1.001-1.035) Urine Protein Negative (Negative) Urine Ketones Negative (Negative) Urine Blood Negative /uL (Negative) Urine Nitrite Negative (Negative) Urine Bilirubin Negative (Negative) Urine Urobilinogen Normal mg/dL (Negative) Urine Leukocyte Esterase Negative /uL (Negative) Urine RBC <1 /hpf (0 - 4) Urine WBC 2 /hpf (0 - 5) Urine Squamous Epithelial Cells Few /hpf (<5) Urine Bacteria None seen /hpf (None Seen) Urine Mucus Few (None Seen) Urine Glucose Normal mg/dL (Normal) Assessment/Plan Assessment/Plan 54 year female with a known history of hypotension knee systems with the hospital with a donor pain and loss of appetite found to have 1. Intractable abdominal pain 2. Nausea vomiting resolved 3. Hypertension 4. Anorexia -diet as tolerated, GI consultation -check amylase lipase. Plan discussed with: Patient, Spouse My Orders Orders - PETAR MELENDEZ MD Procedure Category Date Status Time * Gi Dvh Colon Therapist CONS 05/15/24 Transmitted 15:38 Date of Service: May 15, 2024 Billing Provider: PETAR MELENDEZ MD Common Visit Codes: [id number] INP/OBS CARE(MOD) PETAR MELENDEZ MD May 15, 2024 16:43
--- NOTE | 2024-05-15 17:54 | DVHINCON2 ---
GI Consult Consult Note Date of Consultation: 05/15/2024 Chief Complaint: Abdominal pain Referring Physician: Meka H&P: Patient is a 54-year-old female with abdominal pain for several days, denies melena or hematochezia, denies dysphagia or odynophagia. Pain is located in epigastric and left side. She states that she had endoscopy and colonoscopy last year that was normal. This was done at [facility]. GI consultation was obtained for evaluation. The pain is sharp in nature and does not radiate. She states it is not associated with eating. Patient has had nausea and vomiting as well as diarrhea. She has a recent UTI for which he was taking antibiotics. Patient has hypertension and is a prediabetic. Patient's nausea, vomiting, and diarrhea has resolved Past Medical History: Hypertension Prediabetes History of UTI Past Surgical History: Denies any surgical history Social History: NO smoking, drinking ETOH and use of illegal drugs. Family History: No gastrointestinal diseases or malignancies Current Medications Medications (Trade) Dose Ordered Sig/Stefano Route Start Time Stop Time Status Last Admin Dose Admin Diagnostic Test (Pha) (Accu-Chek Comfort Curve T) 1 strip IQ4HR 05/13/24 12:00 05/14/24 11:22 1 STRIP Insulin Human Regular (InsuLIN R) IQ4HR SC 05/13/24 12:00 Dextrose 50 ml UD PRN IV 05/13/24 11:15 Sodium Chloride 1,000 ml @ 60 mls/hr [id number] IV 05/13/24 11:15 05/13/24 23:47 60 MLS/HR Lorazepam (Ativan Tablet) 0.5 mg Q6HP PRN PO 05/13/24 11:15 Al Hydrox/Mg Hydrox/Simethicone (Maalox Plus) 30 ml Q6HP PRN PO 05/13/24 11:15 Docusate Sodium (Colace Capsule) 100 mg BIDPRN PRN PO 05/13/24 11:15 Acetaminophen (Tylenol Tablet) 650 mg Q6HP PRN PO 05/13/24 11:15 Temazepam (Restoril) 15 mg QHSP PRN PO 05/13/24 11:15 Acetaminophen/ Hydrocodone Bitart ([place] 5/325MG Tab) 1 tab Q4HP PRN PO 05/13/24 11:15 05/15/24 10:40 1 TAB Ondansetron HCl (Zofran) 4 mg Q4HP PRN IV 05/13/24 11:15 Morphine Sulfate 2 mg Q4HPRN PRN IV 05/13/24 11:15 05/13/24 14:16 2 MG Review of Systems: Constitutional: no fever, chill, weight loss HEENT: no eye pain, no hearing loss, no oral lesion, no scleral icterus Heart: no chest pain, no chest pressure Lung: no cough, no dyspnea with exertion Abdomen: see HPI : Recent UTI Musculoskeletal: no joint pain, no muscle pain Neurological: no seizure, no loss of sensation, no weakness in extremities Pysch: no depression, no anxiety Derm: no rash, no jaundice Vital Signs Date Time Temp Pulse Resp B/P (MAP) Pulse Ox O2 Delivery O2 Flow Rate FiO2 05/15/24 16:37 97.7 61 16 154/76 (102) 97 97.7 05/15/24 08:00 Room Air* 0 21 Physical exam: General: NAD, AAOX3 HEENT: PERRL, no scleral icterus, normal hearing, gums without lesions or bl eeding, oropharynx clear without erythema or exudate. Neck: Supple without enlargement of the thyroid, or lymphadenopathy. Heart: RRR, Abdomen: Mild tenderness to palpation left upper quadrant Extremities: no edema, no cyanosis Neurological: CN II-XII intact, sensation intact in all extremities, 5+ strength in all extremities, no asterixis Skin: No rashes, No jaundice Labs: Labs Test 05/15/24 17:27 05/14/24 11:11 05/14/24 06:03 05/13/24 06:34 Range/Units POC Glucose 131 H 70-106 mg/dl White Blood Count 7.0 4.4-10.8 10^3/uL Red Blood Count 4.02 4.0-5.20 10^6/uL Hemoglobin 12.2 12.2-16.2 g/dL Hematocrit 35.7 L 36.0-46.0 % Mean Corpuscular Volume 88.7 80.0-100.0 fL Mean Corpuscular Hemoglobin 30.3 28.0-32.0 pg Mean Corpuscular Hemoglobin Concent 34.2 32.0-36.0 g/dL Red Cell Distribution Width 13.6 11.8-14.3 % Platelet Count 244 140-450 10^3/uL Mean Platelet Volume 8.8 6.9-10.8 fL Neutrophils (%) (Auto) 54.9 37.0-80.0 % Lymphocytes (%) (Auto) 35.2 10.0-50.0 % Monocytes (%) (Auto) 7.6 0.0-12.0 % Eosinophils (%) (Auto) 1.9 0.0-7.0 % Basophils (%) (Auto) 0.4 0.0-2.0 % Neutrophils # (Auto) 3.9 1.6-8.6 10 ^3/uL Lymphocytes # (Auto) 2.5 0.4-5.4 10 ^3/uL Monocytes # (Auto) 0.5 0-1.3 10 ^3/uL Eosinophils # (Auto) 0.1 0-0.8 10 ^3/uL Basophils # (Auto) 0 0-0.2 10 ^3/uL Nucleated Red Blood Cells 0.1 % Sodium Level 141 136-145 mmol/L Potassium Level 3.9 3.5-5.1 mmol/L Chloride Level 107 98-107 mmol/L Carbon Dioxide Level 26 20-31 mmol/L Anion Gap 8 5-15 Blood Urea Nitrogen 11 9-23 mg/dL Creatinine 0.71 0.550-1.02 mg/dL Glomerular Filtration Rate Calc 100 >90 mL/min BUN/Creatinine Ratio 15.5 10.0-20.0 Serum Glucose 108 H 74-106 mg/dL Calcium Level 9.2 8.7-10.4 mg/dL Total Bilirubin 0.4 0.2-1.0 mg/dL Aspartate Amino Transferase (AST) 28 13-40 U/L Alanine Aminotransferase (ALT) 37 7-40 U/L Alkaline Phosphatase 116 46-116 U/L Total Protein 7.0 5.7-8.2 g/dL Albumin 4.1 3.2-4.8 g/dL Beta HCG, Quantitative 7.0 H 1.5-4.2 mIU/mL Test 05/13/24 06:15 Range/Units Urine Color Light-yellow Yellow Urine Clarity Clear Clear Urine pH 6.5 5.0-9.0 Urine Specific [place] 1.016 1.001-1.035 Urine Protein Negative Negative Urine Ketones Negative Negative Urine Blood Negative Negative /uL Urine Nitrite Negative Negative Urine Bilirubin Negative Negative Urine Urobilinogen Normal Negative mg/dL Urine Leukocyte Esterase Negative Negative /uL Urine RBC <1 0 - 4 /hpf Urine WBC 2 0 - 5 /hpf Urine Squamous Epithelial Cells Few <5 /hpf Urine Bacteria None seen None Seen /hpf Urine Mucus Few None Seen Urine Glucose Normal Normal mg/dL Imaging: Vital Signs Date Time Temp Pulse Resp B/P (MAP) Pulse Ox O2 Delivery O2 Flow Rate FiO2 05/15/24 16:37 97.7 61 16 154/76 (102) 97 97.7 05/15/24 13:00 98.1 61 17 148/79 (102) 96 98.1 05/15/24 09:00 97.9 61 16 148/77 (100) 96 97.9 05/15/24 08:00 88 18 96 Room Air* 0 21 05/15/24 05:00 98.0 58 17 138/67 (90) 98 98.0 05/15/24 01:00 98.0 60 17 149/62 (91) 98.0 05/15/24 00:18 160/87 05/14/24 21:30 55 18 168/73 (104) 05/14/24 21:00 97.9 60 19 186/94 (124) 98 97.9 05/14/24 20:00 18 100 Room Air* 0 21 Lab Test 05/15/24 17:27 Range/Units Amylase Level Pending Lipase Pending Current Medications Medications (Trade) Dose Ordered Sig/Stefano Route Start Time Stop Time Status Last Admin Clonidine HCl (Catapres Tablet) 0.1 mg ONCE ONCE PO 05/14/24 23:15 05/14/24 23:21 DC 05/15/24 00:[address] scan IMPRESSION: 1. Normal appendix. 2. Small esophageal hiatal hernia. 3. Umbilical hernia containing fat. 4. No obstructive uropathy. Assessment: # abdominal pain refractory to pain medication and treatment # hiatal hernia Vital Signs Date Time Temp Pulse Resp B/P (MAP) Pulse Ox O2 Delivery O2 Flow Rate FiO2 05/15/24 16:37 97.7 61 16 154/76 (102) 97 97.7 05/15/24 13:00 98.1 61 17 148/79 (102) 96 98.1 05/15/24 09:00 97.9 61 16 148/77 (100) 96 97.9 05/15/24 08:00 88 18 96 Room Air* 0 21 05/15/24 05:00 98.0 58 17 138/67 (90) 98 98.0 05/15/24 01:00 98.0 60 17 149/62 (91) 98.0 05/15/24 00:18 160/87 05/14/24 21:30 55 18 168/73 (104) 05/14/24 21:00 97.9 60 19 186/94 (124) 98 97.9 05/14/24 20:00 18 100 Room Air* 0 21 Lab Test 05/15/24 17:27 Range/Units Amylase Level Pending Lipase Pending Current Medications Medications (Trade) Dose Ordered Sig/Stefano Route Start Time Stop Time Status Last Admin Clonidine HCl (Catapres Tablet) 0.1 mg ONCE ONCE PO 05/14/24 23:15 05/14/24 23:21 DC 05/15/24 00:18 Plan: 1. Diet as tolerated 2. Pain control 3. Antiemetics as needed 4. Consider EGD if the patient does not improve in the next 24 hours 5. Consider discharge patient home and outpatient follow-up Date of Service: May 15, 2024 Billing Provider: KEYONA CASTILLO MD Common Visit Codes: [id number] INP/OBS CARE (HIGH) Consultation Codes: [id number] CONSULT <60MIN KEYONA CASTILLO MD May 15, 2024 17:54
[2024-05-15 18:02] LABS: Lipase 38 U/L (12-53)
[2024-05-15 18:04] LABS: Amylase 70 U/L (30-118)
[2024-05-16] VITALS (9 sets, daily range): BP systolic 131–178; BP diastolic 63–76; PULSE 58–77; RESP 16–19; TEMP 97.6–98.1; O2SAT 96–98
[2024-05-16] MEDS ORDERED: LOSA100T25 PO (11:58)
[2024-05-16] MEDS: SUCRALFATE 1 GM TAB PO ONE (12:08)
[2024-05-16] MEDS: PANTOPRAZOLE 40 MG TAB PO ONE (12:09)
--- NOTE | 2024-05-16 13:29 | DVHHP2 ---
History of Present Illness Reason for Visit: Abdominal pain History of Present Illness 54-year-old female with a history of GERD, hypertension, recent UTI was treated 2 weeks ago She came with abdominal pain for about 4 days, it is located in the epigastric and mid abdomen on the left side associated with nausea and vomiting She had some diarrhea She has a history of GERD and she had endoscopy of the upper and lower endoscopy about a year ago at [facility] She takes omeprazole at home for heartburn Review of Systems Gastrointestinal: Nausea, Vomiting, Abdominal Pain, Diarrhea Allergies: Coded Allergies: NO KNOWN ALLERGIES (Unverified , 01/29/23) Medications Current Medications Medications Dose Ordered Sig/Stefano Route Start Time Stop Time Status Last Admin Dose Admin Diagnostic Test (Pha) 1 strip IQ4HR 05/13/24 12:00 05/16/24 08:14 1 STRIP Insulin Human Regular IQ4HR SC 05/13/24 12:00 Dextrose 50 ml UD PRN IV 05/13/24 11:15 Lorazepam 0.5 mg Q6HP PRN PO 05/13/24 11:15 Al Hydrox/Mg Hydrox/Simethicone 30 ml Q6HP PRN PO 05/13/24 11:15 Docusate Sodium 100 mg BIDPRN PRN PO 05/13/24 11:15 Acetaminophen 650 mg Q6HP PRN PO 05/13/24 11:15 Temazepam 15 mg QHSP PRN PO 05/13/24 11:15 Acetaminophen/ Hydrocodone Bitart 1 tab Q4HP PRN PO 05/13/24 11:15 05/16/24 12:15 1 TAB Ondansetron HCl 4 mg Q4HP PRN IV 05/13/24 11:15 Morphine Sulfate 2 mg Q4HPRN PRN IV 05/13/24 11:15 05/13/24 14:16 2 MG Pantoprazole Sodium 40 mg BID@0600,1700 PO 05/16/24 17:00 Sucralfate 1 gm QIDACHS PO 05/16/24 17:00 Exam Vital Signs Vital Signs Date Time Temp Pulse Resp B/P (MAP) Pulse Ox O2 Delivery O2 Flow Rate FiO2 05/16/24 13:00 97.9 64 19 178/76 (110) 96 97.9 05/15/24 20:00 Room Air* 0 21 General Appearance: Alert, Oriented X3, Cooperative, No acute distress Respiratory: Clear to auscultation, Normal air movement Cardiovascular: Regular rate, Normal S1, Normal S2, No murmurs Abdominal: Normal bowel sounds, Soft, No tenderness Extremities: No edema Labs/Xrays Labs Test 05/16/24 08:14 05/15/24 17:27 05/14/24 06:03 05/13/24 06:34 Range/Units POC Glucose 121 H 70-106 mg/dl Amylase Level 70 30-118 U/L Lipase 38 12-53 U/L White Blood Count 7.0 4.4-10.8 10^3/uL Red Blood Count 4.02 4.0-5.20 10^6/uL Hemoglobin 12.2 12.2-16.2 g/dL Hematocrit 35.7 L 36.0-46.0 % Mean Corpuscular Volume 88.7 80.0-100.0 fL Mean Corpuscular Hemoglobin 30.3 28.0-32.0 pg Mean Corpuscular Hemoglobin Concent 34.2 32.0-36.0 g/dL Red Cell Distribution Width 13.6 11.8-14.3 % Platelet Count 244 140-450 10^3/uL Mean Platelet Volume 8.8 6.9-10.8 fL Neutrophils (%) (Auto) 54.9 37.0-80.0 % Lymphocytes (%) (Auto) 35.2 10.0-50.0 % Monocytes (%) (Auto) 7.6 0.0-12.0 % Eosinophils (%) (Auto) 1.9 0.0-7.0 % Basophils (%) (Auto) 0.4 0.0-2.0 % Neutrophils # (Auto) 3.9 1.6-8.6 10 ^3/uL Lymphocytes # (Auto) 2.5 0.4-5.4 10 ^3/uL Monocytes # (Auto) 0.5 0-1.3 10 ^3/uL Eosinophils # (Auto) 0.1 0-0.8 10 ^3/uL Basophils # (Auto) 0 0-0.2 10 ^3/uL Nucleated Red Blood Cells 0.1 % Sodium Level 141 136-145 mmol/L Potassium Level 3.9 3.5-5.1 mmol/L Chloride Level 107 98-107 mmol/L Carbon Dioxide Level 26 20-31 mmol/L Anion Gap 8 5-15 Blood Urea Nitrogen 11 9-23 mg/dL Creatinine 0.71 0.550-1.02 mg/dL Glomerular Filtration Rate Calc 100 >90 mL/min BUN/Creatinine Ratio 15.5 10.0-20.0 Serum Glucose 108 H 74-106 mg/dL Calcium Level 9.2 8.7-10.4 mg/dL Total Bilirubin 0.4 0.2-1.0 mg/dL Aspartate Amino Transferase (AST) 28 13-40 U/L Alanine Aminotransferase (ALT) 37 7-40 U/L Alkaline Phosphatase 116 46-116 U/L Total Protein 7.0 5.7-8.2 g/dL Albumin 4.1 3.2-4.8 g/dL Beta HCG, Quantitative 7.0 H 1.5-4.2 mIU/mL Test 05/13/24 06:15 Range/Units Urine Color Light-yellow Yellow Urine Clarity Clear Clear Urine pH 6.5 5.0-9.0 Urine Specific [place] 1.016 1.001-1.035 Urine Protein Negative Negative Urine Ketones Negative Negative Urine Blood Negative Negative /uL Urine Nitrite Negative Negative Urine Bilirubin Negative Negative Urine Urobilinogen Normal Negative mg/dL Urine Leukocyte Esterase Negative Negative /uL Urine RBC <1 0 - 4 /hpf Urine WBC 2 0 - 5 /hpf Urine Squamous Epithelial Cells Few <5 /hpf Urine Bacteria None seen None Seen /hpf Urine Mucus Few None Seen Urine Glucose Normal Normal mg/dL Assessment/Plan Assessment/Plan Abdominal pain GERD Hiatal hernia Hypertension Umbilical hernia Plan Start Protonix p.o. Start Carafate GI consult GI is planning EGD tomorrow Discontinue the IV fluids Discussed with the family at the bedside Plan discussed with: Patient, Spouse My Orders Orders - LORENZO BENITO MD Procedure Category Date Status Time Pantoprazole Tablet PHA 05/16/24 In Process (Protonix Tablet) 17:00 Sucralfate Tab PHA 05/16/24 In Process (Carafate Tab) 17:00 Date of Service: May 16, 2024 Billing Provider: LORENZO BENITO MD Common Visit Codes: [id number] INP/OBS CARE (HIGH) LORENZO BENITO MD May 16, 2024 13:29
--- NOTE | 2024-05-16 14:16 | DVHPN2 ---
Subjective No changes Reviewed: Care Plan Changes from previous H/P or p: No Changes Gastrointestinal: Nausea, Vomiting, Abdominal Pain, Diarrhea Objective Vitals Vital Signs Date Time Temp Pulse Resp B/P (MAP) Pulse Ox O2 Delivery O2 Flow Rate FiO2 05/16/24 13:00 97.9 64 19 178/76 (110) 96 97.9 05/15/24 20:00 Room Air* 0 21 Intake/Output Intake and Output 05/16/24 07:00 Intake Total 500 ml Balance 500 ml Intake Oral 500 ml # Voids 5 General Appearance: Alert, Oriented X3, Cooperative, No acute distress, mild distress, moderate distress, severe distress, Other Lungs: Clear to auscultation, Normal air movement, Other Cardiovascular: Regular rate, Normal S1, Normal S2, No murmurs, Gallops, Rubs, Other Abdomen: Normal bowel sounds, Soft, No tenderness, No hepatospenomegaly, No masses, Other Medications Current Medications Medications Dose Ordered Sig/Stefano Route Start Time Stop Time Status Last Admin Dose Admin Diagnostic Test (Pha) 1 strip IQ4HR 05/13/24 12:00 05/16/24 08:14 1 STRIP Insulin Human Regular IQ4HR SC 05/13/24 12:00 Dextrose 50 ml UD PRN IV 05/13/24 11:15 Lorazepam 0.5 mg Q6HP PRN PO 05/13/24 11:15 Al Hydrox/Mg Hydrox/Simethicone 30 ml Q6HP PRN PO 05/13/24 11:15 Docusate Sodium 100 mg BIDPRN PRN PO 05/13/24 11:15 Acetaminophen 650 mg Q6HP PRN PO 05/13/24 11:15 Temazepam 15 mg QHSP PRN PO 05/13/24 11:15 Acetaminophen/ Hydrocodone Bitart 1 tab Q4HP PRN PO 05/13/24 11:15 05/16/24 12:15 1 TAB Ondansetron HCl 4 mg Q4HP PRN IV 05/13/24 11:15 Morphine Sulfate 2 mg Q4HPRN PRN IV 05/13/24 11:15 05/13/24 14:16 2 MG Pantoprazole Sodium 40 mg BID@0600,1700 PO 05/16/24 17:00 Sucralfate 1 gm QIDACHS PO 05/16/24 17:00 Laboratory Results Laboratory Tests 05/14/24 06:03 Lipid panel Test 05/15/24 17:27 Lipase 38 U/L (12-53) Urinalysis Test 05/13/24 06:15 Urine Color Light-yellow (Yellow) Urine Clarity Clear (Clear) Urine pH 6.5 (5.0-9.0) Urine Specific [place] 1.016 (1.001-1.035) Urine Protein Negative (Negative) Urine Ketones Negative (Negative) Urine Blood Negative /uL (Negative) Urine Nitrite Negative (Negative) Urine Bilirubin Negative (Negative) Urine Urobilinogen Normal mg/dL (Negative) Urine Leukocyte Esterase Negative /uL (Negative) Urine RBC <1 /hpf (0 - 4) Urine WBC 2 /hpf (0 - 5) Urine Squamous Epithelial Cells Few /hpf (<5) Urine Bacteria None seen /hpf (None Seen) Urine Mucus Few (None Seen) Urine Glucose Normal mg/dL (Normal) Labs and/or images reviewed: Labs reviewed by me, Image(s) reviewed by me Assessment/Plan Assessment/Plan Abdominal pain Hiatal hernia Plan: Discussed with Dr. Doc Branham tomorrow 05/17/2024, discussed risks benefits and alternatives of procedure and sedation, patient understands and agrees Hold blood thinners Plan discussed with: Patient, Spouse, Other (RN) Date of Service: May 16, 2024 Billing Provider: HARIS NAZARIO Common Visit Codes: [id number] INP/OBS CARE(HIGH) HARIS NAZARIO May 16, 2024 14:16
[2024-05-16] MEDS: LOSARTAN POTASSIUM 50 MG TAB PO ONE (14:53)
[2024-05-16] MEDS: hydrALAZINE HCL 20 MG/ML VL IV PRN (16:34)
[2024-05-16 16:43] LABS: INR 1.06 (0.9-1.15); Prothrombin Time 11.2 sec (9.3-11.8)
[2024-05-16] MEDS: PANTOPRAZOLE 40 MG TAB PO SCH (18:34)
[2024-05-16] MEDS: SUCRALFATE 1 GM TAB PO SCH (18:35)
[2024-05-16] MEDS: ACETAMINOPHEN 325 MG TAB PO PRN (22:54)
[2024-05-17] VITALS (8 sets, daily range): BP systolic 124–157; BP diastolic 66–83; PULSE 63–96; RESP 16–18; TEMP 97.4–98.4; O2SAT 95–98
[2024-05-17] MEDS: MAALOX PLUS or MAALOX 30 ML PO PRN (00:39)
[2024-05-17] MEDS: ONDANSETRON HCL 4 MG/2 ML VIAL IV PRN (00:39)
[2024-05-17 07:08] LABS: Alanine Aminotransferase 26 U/L (7-40); Albumin 4.1 g/dL (3.2-4.8); Alkaline Phosphatase 108 U/L (46-116); Anion Gap 7 (5-15); Aspartate Aminotransferase 22 U/L (13-40); BUN/Creatinine Ratio 21.2 (10.0-20.0); Bilirubin, Total 0.4 mg/dL (0.2-1.0); Blood Urea Nitrogen 14 mg/dL (9-23); Calcium 9.6 mg/dL (8.7-10.4); Carbon Dioxide 26 mmol/L (20-31); Chloride 104 mmol/L (98-107); Glucose 111 mg/dL (74-106); Potassium 3.8 mmol/L (3.5-5.1); Sodium 137 mmol/L (136-145); Total Protein 6.8 g/dL (5.7-8.2)
[2024-05-17 07:19] LABS: Basophils # (auto) 0 10 ^3/uL (0-0.2); Basophils % (auto) 0.3 % (0.0-2.0); Eosinophils # (auto) 0.1 10 ^3/uL (0-0.8); Eosinophils % (auto) 1.1 % (0.0-7.0); Hematocrit 39.6 % (36.0-46.0); Hemoglobin 13.5 g/dL (12.2-16.2); Lymphocytes # (auto) 2.5 10 ^3/uL (0.4-5.4); Lymphocytes % (auto) 36.8 % (10.0-50.0); Mean Corpuscular Hemoglobin 30.1 pg (28.0-32.0); Mean Corpuscular Hgb Conc. 34.2 g/dL (32.0-36.0); Monocytes # (auto) 0.5 10 ^3/uL (0-1.3); Monocytes % (auto) 7.6 % (0.0-12.0); Neutrophils # (auto) 3.7 10 ^3/uL (1.6-8.6); Neutrophils % (auto) 54.2 % (37.0-80.0); Nucleated Red Blood Cells % 0.2 %; Platelet Count (auto) 271 10^3/uL (140-450); Red Cell Distribution Width 13.4 % (11.8-14.3); White Blood Cell 6.9 10^3/uL (4.4-10.8)
--- NOTE | 2024-05-17 07:24 | DVH ---
CHEST RADIOGRAPH Indication: pre op Technique: Single frontal view of the chest was obtained Comparison: XY CHEST PORTABLE on DOS: 01/29/23 FINDINGS: Lines and Tubes: None Lungs: No focal consolidation. Pleura: No effusion. No pneumothorax. Cardiomediastinal contours: Unremarkable Bones: No acute osseous abnormality. IMPRESSION: 1. No acute cardiopulmonary disease.
[2024-05-17 07:29] LABS: INR 1.05 (0.9-1.15); Partial Thromboplastin Time 29.9 SEC (24.5-34.5); Prothrombin Time 11.1 sec (9.3-11.8)
[2024-05-17] MEDS: LOSARTAN POTASSIUM 50 MG TAB PO SCH (10:01)
--- NOTE | 2024-05-17 13:09 | DVH ---
Exam: CT CT ABD PELVIS W CON-ORAL IV History: abd pain TECHNIQUE: A digital court magistrate image was obtained. During the uneventful, intravenous administration of c ontrast material, multislice data acquisition was obtained through the abdomen and pelvis. The data s et was subsequently reconstructed into axial images. Images were reviewed on a work station using a c ombination of axial and multiplanar using a variety of window levels and settings. 100 cc of Omnipaqu e 300 contrast was injected intravenously. All CT scans at this medical facility are performed using dose modulation techniques as appropriate t o a performed exam including the following:Automated exposure control was utilized; adjustment of the MA and/or KV according to patient size; and use of iterative reconstruction technique. Radiation Dose Information: CT Dose: CTDI volume is 7.12 mGy. Dose-length product is 381.67 mGy*cm Comparison: CT CT AB PEL WO CON-NO ORAL OR IV on DOS: 05/13/24 FINDINGS: Theliver, gallbladder, pancreas, kidneys, adrenal glands, and spleen appear within normal limits. There is no evidence of abdominal lymphadenopathy. There is no free fluid or free air. There is a small hiatal hernia. The stomach otherwise appears unremarkable. The small and large bowel loops demonstrate normal caliber and appear within normal limits.. A normal-appearing appendix is s een in the right lower quadrant abdomen. The abdominal aorta and IVC appear within normal limits. The bladder appears within normal limits the degree of distention. Pelvic organs is unremarkable. Th ere is no evidence of a pelvic mass or lymphadenopathy. There is no free fluid collection. Lung bases are clear. There is no acute osseous abnormality. IMPRESSION: 1. There is no acute process in the abdomen and pelvis.. 2. Small hiatal hernia. HS:Y
--- NOTE | 2024-05-17 13:26 | DVHPN2 ---
Subjective No changes Reviewed: Care Plan Changes from previous H/P or p: No Changes Gastrointestinal: Nausea, Vomiting, Abdominal Pain, Diarrhea Objective Vitals Vital Signs Date Time Temp Pulse Resp B/P (MAP) Pulse Ox O2 Delivery O2 Flow Rate FiO2 05/17/24 13:00 97.4 69 18 133/67 (89) 95 97.4 05/17/24 08:00 Room Air* 0 21 Intake/Output Intake and Output 05/17/24 07:00 Intake Total 3025 ml Balance 3025 ml Intake Oral 3025 ml # Voids 8 General Appearance: Alert, Oriented X3, Cooperative, No acute distress, mild distress, moderate distress, severe distress, Other Lungs: Clear to auscultation Chest/Breasts: Discharge, Lesions, Lumps, Nipple Changes, Pruritis, R ashes/Redness, Symmetry, Tumors, Other Cardiovascular: Regular rate Abdomen: Normal bowel sounds, Soft, No tenderness (RUQ /epigastric tenderness) Medications Current Medications Medications Dose Ordered Sig/Stefano Route Start Time Stop Time Status Last Admin Dose Admin Diagnostic Test (Pha) 1 strip IQ4HR 05/13/24 12:00 05/17/24 10:12 1 STRIP Insulin Human Regular IQ4HR SC 05/13/24 12:00 Dextrose 50 ml UD PRN IV 05/13/24 11:15 Lorazepam 0.5 mg Q6HP PRN PO 05/13/24 11:15 Al Hydrox/Mg Hydrox/Simethicone 30 ml Q6HP PRN PO 05/13/24 11:15 05/17/24 00:39 30 ML Docusate Sodium 100 mg BIDPRN PRN PO 05/13/24 11:15 Acetaminophen 650 mg Q6HP PRN PO 05/13/24 11:15 05/16/24 22:54 650 MG Temazepam 15 mg QHSP PRN PO 05/13/24 11:15 Acetaminophen/ Hydrocodone Bitart 1 tab Q4HP PRN PO 05/13/24 11:15 05/16/24 21:05 1 TAB Ondansetron HCl 4 mg Q4HP PRN IV 05/13/24 11:15 05/17/24 00:39 4 MG Morphine Sulfate 2 mg Q4HPRN PRN IV 05/13/24 11:15 05/17/24 00:41 2 MG Pantoprazole Sodium 40 mg BID@0600,1700 PO 05/16/24 17:00 05/17/24 05:37 40 MG Sucralfate 1 gm QIDACHS PO 05/16/24 17:00 05/17/24 06:27 1 GM Losartan Potassium 100 mg DAILY PO 05/17/24 10:00 05/17/24 10:01 100 MG Hydralazine HCl 10 mg Q6HP PRN IV 05/16/24 14:45 05/16/24 16:34 10 MG Laboratory Results Laboratory Tests 05/17/24 06:20 Chemistry Test 05/17/24 06:20 Albumin 4.1 g/dL (3.2-4.8) Calcium Level 9.6 mg/dL (8.7-10.4) Total Protein 6.8 g/dL (5.7-8.2) Coagulation Test 05/16/24 15:50 05/17/24 06:20 Prothrombin Time 11.2 sec (9.3-11.8) 11.1 sec (9.3-11.8) Prothrombin Time INR 1.06 (0.9-1.15) 1.05 (0.9-1.15) Activated Partial Thromboplast Time 29.9 SEC (24.5-34.5) LFT Test 05/17/24 06:20 Alanine Aminotransferase (ALT) 26 U/L (7-40) Alkaline Phosphatase 108 U/L (46-116) Aspartate Amino Transferase (AST) 22 U/L (13-40) Total Bilirubin 0.4 mg/dL (0.2-1.0) Urinalysis Test 05/13/24 06:15 Urine Color Light-yellow (Yellow) Urine Clarity Clear (Clear) Urine pH 6.5 (5.0-9.0) Urine Specific [place] 1.016 (1.001-1.035) Urine Protein Negative (Negative) Urine Ketones Negative (Negative) Urine Blood Negative /uL (Negative) Urine Nitrite Negative (Negative) Urine Bilirubin Negative (Negative) Urine Urobilinogen Normal mg/dL (Negative) Urine Leukocyte Esterase Negative /uL (Negative) Urine RBC <1 /hpf (0 - 4) Urine WBC 2 /hpf (0 - 5) Urine Squamous Epithelial Cells Few /hpf (<5) Urine Bacteria None seen /hpf (None Seen) Urine Mucus Few (None Seen) Urine Glucose Normal mg/dL (Normal) Labs and/or images reviewed: Labs reviewed by me, Image(s) reviewed by me Assessment/Plan Assessment/Plan Abdominal pain Hiatal hernia Plan: Discussed with Dr. Roach CT abd pelvis c IV/PO contrast after reviewing CT results, possible plan Egd tomorrow 05/18/2024, discussed risks benefits and alternatives of procedure and sedation, patient understands and agrees Hold blood thinners Plan discussed with: Patient, Other (RN) My Orders Orders - HARIS NAZARIO Procedure Category Date Status Time Clear Liq Diet DIET 05/17/24 Transmitted Lunch Date of Service: May 17, 2024 Billing Provider: HARIS NAZARIO Common Visit Codes: [id number] INP/OBS CARE(MOD) HARIS NAZARIO May 17, 2024 13:26
--- NOTE | 2024-05-17 14:43 | DVHPN2 ---
Subjective He is still having abdominal pain Scheduled for EGD today Reviewed: Care Plan Changes from previous H/P or p: Changes Gastrointestinal: Nausea, Vomiting, Abdominal Pain, Diarrhea Objective Vitals Vital Signs Date Time Temp Pulse Resp B/P (MAP) Pulse Ox O2 Delivery O2 Flow Rate FiO2 05/17/24 13:00 97.4 69 18 133/67 (89) 95 97.4 05/17/24 08:00 Room Air* 0 21 Intake/Output Intake and Output 05/17/24 07:00 Intake Total 3025 ml Balance 3025 ml Intake Oral 3025 ml # Voids 8 General Appearance: Alert, Oriented X3, Cooperative, No acute distress, mild distress, moderate distress, severe distress, Other Lungs: Clear to auscultation Chest/Breasts: Discharge, Lesions, Lumps, Nipple Changes, Pruritis, R ashes/Redness, Symmetry, Tumors, Other Cardiovascular: Regular rate Abdomen: Normal bowel sounds, Soft, No tenderness (RUQ /epigastric tenderness) Medications Current Medications Medications Dose Ordered Sig/Stefano Route Start Time Stop Time Status Last Admin Dose Admin Diagnostic Test (Pha) 1 strip IQ4HR 05/13/24 12:00 05/17/24 10:12 1 STRIP Insulin Human Regular IQ4HR SC 05/13/24 12:00 Dextrose 50 ml UD PRN IV 05/13/24 11:15 Lorazepam 0.5 mg Q6HP PRN PO 05/13/24 11:15 Al Hydrox/Mg Hydrox/Simethicone 30 ml Q6HP PRN PO 05/13/24 11:15 05/17/24 00:39 30 ML Docusate Sodium 100 mg BIDPRN PRN PO 05/13/24 11:15 Acetaminophen 650 mg Q6HP PRN PO 05/13/24 11:15 05/16/24 22:54 650 MG Temazepam 15 mg QHSP PRN PO 05/13/24 11:15 Acetaminophen/ Hydrocodone Bitart 1 tab Q4HP PRN PO 05/13/24 11:15 05/16/24 21:05 1 TAB Ondansetron HCl 4 mg Q4HP PRN IV 05/13/24 11:15 05/17/24 00:39 4 MG Morphine Sulfate 2 mg Q4HPRN PRN IV 05/13/24 11:15 05/17/24 00:41 2 MG Pantoprazole Sodium 40 mg BID@0600,1700 PO 05/16/24 17:00 05/17/24 05:37 40 MG Sucralfate 1 gm QIDACHS PO 05/16/24 17:00 05/17/24 06:27 1 GM Losartan Potassium 100 mg DAILY PO 05/17/24 10:00 05/17/24 10:01 100 MG Hydralazine HCl 10 mg Q6HP PRN IV 05/16/24 14:45 05/16/24 16:34 10 MG Laboratory Results Laboratory Tests 05/17/24 06:20 Chemistry Test 05/17/24 06:20 Albumin 4.1 g/dL (3.2-4.8) Calcium Level 9.6 mg/dL (8.7-10.4) Total Protein 6.8 g/dL (5.7-8.2) Coagulation Test 05/16/24 15:50 05/17/24 06:20 Prothrombin Time 11.2 sec (9.3-11.8) 11.1 sec (9.3-11.8) Prothrombin Time INR 1.06 (0.9-1.15) 1.05 (0.9-1.15) Activated Partial Thromboplast Time 29.9 SEC (24.5-34.5) LFT Test 05/17/24 06:20 Alanine Aminotransferase (ALT) 26 U/L (7-40) Alkaline Phosphatase 108 U/L (46-116) Aspartate Amino Transferase (AST) 22 U/L (13-40) Total Bilirubin 0.4 mg/dL (0.2-1.0) Urinalysis Test 05/13/24 06:15 Urine Color Light-yellow (Yellow) Urine Clarity Clear (Clear) Urine pH 6.5 (5.0-9.0) Urine Specific [place] 1.016 (1.001-1.035) Urine Protein Negative (Negative) Urine Ketones Negative (Negative) Urine Blood Negative /uL (Negative) Urine Nitrite Negative (Negative) Urine Bilirubin Negative (Negative) Urine Urobilinogen Normal mg/dL (Negative) Urine Leukocyte Esterase Negative /uL (Negative) Urine RBC <1 /hpf (0 - 4) Urine WBC 2 /hpf (0 - 5) Urine Squamous Epithelial Cells Few /hpf (<5) Urine Bacteria None seen /hpf (None Seen) Urine Mucus Few (None Seen) Urine Glucose Normal mg/dL (Normal) Assessment/Plan Assessment/Plan Abdominal pain GERD Hiatal hernia Hypertension Umbilical hernia Plan Start Protonix p.o. Start Carafate GI consult GI is planning EGD tomorrow Discontinue the IV fluids Discussed with the family at the bedside 05/17/2024: Order CT scan of the abdomen and pelvis with and without contrast today: CT scan is done, negative except for small hiatal hernia EGD today Continue PPI and Carafate GI is following Plan discussed with: Patient My Orders Orders - LORENZO BENITO MD Procedure Category Date Status Time Chest Portable XY 05/17/24 Resulted 05:56 Ct Abd Pelvis W CT 05/17/24 Resulted Con-Oral & Iv 10:58 Date of Service: May 17, 2024 Billing Provider: LORENZO BENITO MD Common Visit Codes: [id number] INP/OBS CARE(HIGH) LORENZO BENITO MD May 17, 2024 14:43
[2024-05-18 01:00] VITALS: BP 133/60; PULSE 66; RESP 16; TEMP 97.9; O2SAT 97
[2024-05-18 05:00] VITALS: BP 127/72; PULSE 76; RESP 16; TEMP 98.1; O2SAT 98
[2024-05-18] MEDS ORDERED: NALOXONE HCL 0.4 MG/ML VIAL ONE (07:16)
[2024-05-18] MEDS ORDERED: FLUMAZENIL 0.1 MG/ML INJ 10ML MDV IV ONE (07:16)
[2024-05-18] MEDS ORDERED: SODIUM CHLORIDE LOCK 10 ML ONE (07:16)
[2024-05-18] MEDS ORDERED: diphenhdrAMINE HCL 50 MG/1 ML VL ONE (07:19)
[2024-05-18] MEDS: fentaNYL CITRATE 100 MCG/2 ML VL ONE (07:32)
[2024-05-18] MEDS: MIDAZOLAM HCL 5 MG/ML-1ML VIAL ONE (07:32)
[2024-05-18 07:51] VITALS: RESP 15; O2SAT 96
--- NOTE | 2024-05-18 07:56 | DVHNC2 ---
Procedure - PROCEDURE PERFORMED BY: Keyona Castillo MD REFERRING PROVIDER: Dr. Flores PROCEDURE PERFORMED: 1. Esophagogastroduodenoscopy with biopsy with moderate sedation PRE-PROCEDURE DIAGNOSIS: 1. GERD refractory to treatment 2. Epigastric abdominal pain POSTPROCEDURE DIAGNOSIS: 1. Moderate erosive esophagitis, LA grade B 2. Z-line at 30 cm irregular, possible Fofana's esophagus 3. Mild gastritis, biopsies taken 4. 4 cm hiatal hernia 5. Retained material in stomach, question contrast verse Carafate MEDICATIONS USED: 5 mg IV Versed, 100 mcg of Fentanyl IV DETAILS OF THE PROCEDURE: Informed consent was obtained after risks benefits and alternatives were discussed at length with patient patient gave consent to the procedure as well as medication used for sedation. The patient was placed in left lateral decubitus position. An Olympus variable endoscope was inserted into the oropharynx advanced into the esophagus, then into the stomach, then into the duodenal bulb and duodenum. The scope was then withdrawn. The mucosa was carefully evaluated. The duodenum was normal to the 3rd portion. The stomach showed gastritis, biopsies were taken the body and antrum and sent for H pylori as well as pathology. There was retained material in the stomach and duodenum, question contrast versus Carafate. Small lesions could have been missed. Retroflexion showed a hiatal hernia.. The scope was withdrawn. The esophagus showed LA grade B erosive esophagitis with the Z-line at 30 cm. The patient had possible Fofana's esophagus and biopsies were taken at 31 cm. The hernia measured 4 cm. The scope was then withdrawn and the procedure completed. The patient tolerated the procedure well. IMPRESSION: 1. Moderate erosive esophagitis and a 4 cm hiatal hernia 2. Mild gastritis , biopsies taken 3. Possible Fofana's esophagus biopsies taken at 31 cm Patient's symptoms are out of proportion to findings. Reflux may be the cause of the patient's nausea however no findings to suggest the patient's abdominal pain on endoscopy as well as imaging. RECOMMENDATIONS: 1. Follow up in GI Clinic for procedure and pathology results 2. Anti-reflux precautions 3. Patient should be on a proton pump inhibitor 30 minutes before breakfast daily and before dinner 4. Consider further workup for the patient's symptoms that they persist or worsen 5. Consider adding H2 veronique for the patient's symptoms of GERD that was refractory to treatment 6. Avoid caffeine, spicy food, alcohol, chocolate, tomatoes, citrus, late night eating. 7. Consider musculoskeletal causes, small-bowel follow-through, or etiology other than GI for the patient's symptoms I WOULD LIKE TO THANK DR. FLORES FOR THIS REFERRAL KEYONA CASTILLO MD May 18, 2024 07:56
[2024-05-18 09:00] VITALS: BP 109/69; PULSE 71; RESP 17; TEMP 98; O2SAT 96
[2024-05-18] MEDS ORDERED: SUCR1TAB PO (11:54)
[2024-05-18] MEDS ORDERED: PANT40T PO (11:54)
--- NOTE | 2024-05-18 12:04 | DVHDS2 ---
Discharge Summary Date of Admission May 13, 2024 at 11:14 Date of Discharge: May 18, 2024 Labs/Diagnostic Data: Laboratory Results Test 05/17/24 23:56 05/17/24 06:20 05/15/24 17:27 05/13/24 06:34 POC Glucose 92 mg/dl (70-106) White Blood Count 6.9 10^3/uL (4.4-10.8) Red Blood Count 4.50 10^6/uL (4.0-5.20) Hemoglobin 13.5 g/dL (12.2-16.2) Hematocrit 39.6 % (36.0-46.0) Mean Corpuscular Volume 88.0 fL (80.0-100.0) Mean Corpuscular Hemoglobin 30.1 pg (28.0-32.0) Mean Corpuscular Hemoglobin Concent 34.2 g/dL (32.0-36.0) Red Cell Distribution Width 13.4 % (11.8-14.3) Platelet Count 271 10^3/uL (140-450) Mean Platelet Volume 8.9 fL (6.9-10.8) Neutrophils (%) (Auto) 54.2 % (37.0-80.0) Lymphocytes (%) (Auto) 36.8 % (10.0-50.0) Monocytes (%) (Auto) 7.6 % (0.0-12.0) Eosinophils (%) (Auto) 1.1 % (0.0-7.0) Basophils (%) (Auto) 0.3 % (0.0-2.0) Neutrophils # (Auto) 3.7 10 ^3/uL (1.6-8.6) Lymphocytes # (Auto) 2.5 10 ^3/uL (0.4-5.4) Monocytes # (Auto) 0.5 10 ^3/uL (0-1.3) Eosinophils # (Auto) 0.1 10 ^3/uL (0-0.8) Basophils # (Auto) 0 10 ^3/uL (0-0.2) Nucleated Red Blood Cells 0.2 % Prothrombin Time 11.1 sec (9.3-11.8) Prothrombin Time INR 1.05 (0.9-1.15) Activated Partial Thromboplast Time 29.9 SEC (24.5-34.5) Sodium Level 137 mmol/L (136-145) Potassium Level 3.8 mmol/L (3.5-5.1) Chloride Level 104 mmol/L (98-107) Carbon Dioxide Level 26 mmol/L (20-31) Anion Gap 7 (5-15) Blood Urea Nitrogen 14 mg/dL (9-23) Creatinine 0.66 mg/dL (0.550-1.02) Glomerular Filtration Rate Calc 103 mL/min (>90) BUN/Creatinine Ratio 21.2 (10.0-20.0) Serum Glucose 111 mg/dL (74-106) Calcium Level 9.6 mg/dL (8.7-10.4) Total Bilirubin 0.4 mg/dL (0.2-1.0) Aspartate Amino Transferase (AST) 22 U/L (13-40) Alanine Aminotransferase (ALT) 26 U/L (7-40) Alkaline Phosphatase 108 U/L (46-116) Total Protein 6.8 g/dL (5.7-8.2) Albumin 4.1 g/dL (3.2-4.8) Amylase Level 70 U/L (30-118) Lipase 38 U/L (12-53) Beta HCG, Quantitative 7.0 mIU/mL (1.5-4.2) Test 05/13/24 06:15 Urine Color Light-yellow (Yellow) Urine Clarity Clear (Clear) Urine pH 6.5 (5.0-9.0) Urine Specific [place] 1.016 (1.001-1.035) Urine Protein Negative (Negative) Urine Ketones Negative (Negative) Urine Blood Negative /uL (Negative) Urine Nitrite Negative (Negative) Urine Bilirubin Negative (Negative) Urine Urobilinogen Normal mg/dL (Negative) Urine Leukocyte Esterase Negative /uL (Negative) Urine RBC <1 /hpf (0 - 4) Urine WBC 2 /hpf (0 - 5) Urine Squamous Epithelial Cells Few /hpf (<5) Urine Bacteria None seen /hpf (None Seen) Urine Mucus Few (None Seen) Urine Glucose Normal mg/dL (Normal) Other Laboratory Tests 05/17/24 06:20 Brief Hx & Hospital Course: 54-year-old female who was admitted for abdominal pain Abdominal ultrasound was unremarkable CT scan of the abdomen and pelvis without contrast showed normal appendix, small esophageal hiatal hernia, umbilical hernia containing fat Lipase was normal No UTI GI saw the patient recommended an EGD which showed: 1. Moderate erosive esophagitis, LA grade B 2. Z-line at 30 cm irregular, possible Fofana's esophagus 3. Mild gastritis, biopsies taken 4. 4 cm hiatal hernia 5. Retained material in stomach, question contrast verse Carafate She was given proton pump inhibitors and Carafate A 2nd CT scan of the abdomen and pelvis with p.o. and IV contrast showed a small hiatal hernia but no other findings The patient is still complaining of some mild pain now She says it is mildly better than before The patient can be discharged home for outpatient follow up She was encouraged that if the pain continues to seek consult from her PCP and possibly get a surgical consult to evaluate the umbilical hernia Final diagnoses: Abdominal pain Erosive esophagitis Gastritis GERD Hiatal hernia Hypertension Umbilical hernia Follow up with Dr. Alcaraz next week Condition at Discharge: Stable Final Diagnosis/Problems List Abdominal pain GERD Hiatal hernia Hypertension Umbilical hernia Discharge Disposition: Home SNF Discharge Will this Physician continue t: No Discharge Instruct/Medications Diet: Cardiac 2g Na,low cholest Diet comment: Avoid NSAIDs and caffeine and alcohol and smoking Activity: No Restrictions, As Tolerated Follow Up/Referral: Dr. Alcaraz next week Medications: Protonix 40 mg p.o. twice a day Carafate 1 g 4 times a day Discharge Statement: "Patient was advised to return to the ER or call 911 if any headaches, dizziness, shortness of breath, chest pain, abdominal pain, bleeding, fevers, or worsening of medical condition. Patient was counseled about treatment plan, medications, possible side effects, patientverbalized understanding. All questions were answered to the best of my ability. This discharge took greater then 30 minutes in planning, reviewing documentation, counseling the patient, and discussing with other team members." ASSESSMENT ASSESSMENT Assessment Abdominal pain Date of Service: May 18, 2024 Billing Provider: LORENZO BENITO MD Common Visit Codes: [id number] DISCH DAY >30min LORENZO BENITO MD May 18, 2024 12:04
[2024-05-18] MEDS: IOHEXOL 300 MG/ML 100ML BOTTLE IJ ONE (12:15)
[2024-05-18] MEDS: GASTROGRAFIN 30 ML SOL ONE (12:15)
[2024-05-18 13:08] VITALS: BP 109/69; TEMP 36.7
--- NOTE | 2024-05-21 14:58 | ECG ---
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
--- NOTE | 2024-05-21 14:58 | ECG ---
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
--- NOTE | 2024-05-21 14:58 | ECG ---
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
== END 2024-05-18 13:32 | disposition home or self-care (01) | DRG 392 ==
LOC: EEVIPCON 06:02 → ER 06:02 → OVERFLOW 11:14 → WEST WING 22:34
PROVIDERS: ADMIT Hospitalist; ATTEND Internal Medicine Geriatric Medicine
PROC: 0DB78ZX Excision of Stomach, Pylorus, Via Natural or Artificial Opening Endoscopic, Diagnostic (ICD-10-PCS; 2024-05-18)
PROC: 0DB58ZX Excision of Esophagus, Via Natural or Artificial Opening Endoscopic, Diagnostic (ICD-10-PCS; principal; 2024-05-18 07:26)
DX: K29.70 Gastritis, unspecified, without bleeding (principal); K22.10 Ulcer of esophagus without bleeding; K44.9 Diaphragmatic hernia without obstruction or gangrene; I10 Essential (primary) hypertension; R63.0 Anorexia; K42.9 Umbilical hernia without obstruction or gangrene; K21.9 Gastro-esophageal reflux disease without esophagitis; Z87.440 Personal history of urinary (tract) infections; Z79.899 Other long term (current) drug therapy; Z68.29 Body mass index [BMI] 29.0-29.9, adult
CPT/HCPCS: 36415; 43239; 71045; 74176; 74177; 76705; 80048; 80053; 81001; 82150; 82962; 83690; 84702; 85025; 85610; 85730; 86850; 86900; 86901; 93005; 96374; G0378; J1885; J2250; J2405; Q0162

== ENCOUNTER 2025-03-09 22:15 | Emergency (ER) | payer OTHER ==
[~2025-03-09] VITALS: Ht 162.6 cm; Wt 113.6 kg
[~2025-03-09 22:15] MED LIST changes: +LOSA100T25 PO; +METO-289 PO; +PANT40T PO; +SUCR1TAB PO; -cloNIDine HCL 0.1 MG TAB ONE
[2025-03-09 22:25] VITALS: BP 130/79; PULSE 64; RESP 18; TEMP 97.8; O2SAT 97
[2025-03-09] MEDS ORDERED: PANTOPRAZOLE 40 MG/10 ML VIAL INJ IV ONE (22:30)
[2025-03-09] MEDS ORDERED: LIDOCAINE 2% JELLY 11ml (GLYDO) UR ONE (22:45)
[2025-03-09] MEDS ORDERED: LIDOCAINE 2% JELLY 11ml (GLYDO) ONE (22:45)
--- NOTE | 2025-03-09 22:48 | ED.PDOC ---
GI ASSESSMENT HPI Comments 51-year-old female who came to ER for rectal pain. Patient states she has history of hemorrhoids, has been having rectal pain for the past month, that progressively worsened in the past 2 days. Noted occasional episodes of rectal bleeding. Patient is concerned that she might have rectal cancer. REVIEW OF SYSTEMS: General: No fever, no chills, or fatigue HEENT: No sore throat, no earache, no congestion, no neck pain. Cardiac: No chest pain. No palpitations. Lungs: No shortness of breath, no cough. GI: No nausea, no vomiting, no diarrhea, no constipation, no abdominal pain (+) rectal pain : No dysuria, frequency, or urgency. No hematuria. Musculoskeletal: No joint pain , no joint swelling, no extremity edema. Skin: No rash, no itching. Neuro: No headache, no dizziness, no weakness EXAM: General: Awake, alert and oriented. No acute distress. Skin: Skin in warm, dry and intact. Appropriate color for ethnicity. HEENT: The head is normocephalic and atraumatic. Conjunctivae are clear without exudates or hemorrhage. Sclera is non-icteric. EOM are intact. No signs of nystagmus. Eyelids are normal in appearance without swelling or lesions. Oral mucosa is pink and moist Neck: The neck is supple with normal range of motion. No JVD. Cardiac: Heart rate and rhythm are normal. No murmurs, gallops, or rubs are auscultated. Respiratory: No signs of respiratory distress. Lung sounds are clear in all lobes bilaterally without rales, rhonchi, or wheezes. Abdominal: Abdomen is soft, non-tender without distention. Bowel sounds are present and normoactive in all four quadrants. Extremities: Upper and lower extremities are atraumatic in appearance without deformity or edema. Neurological: The patient is awake, alert and oriented to person, place, and time with normal speech. Speech is clear. There is no facial asymmetry. Psychiatric: Appropriate mood and affect. Good judgement and insight Chief Complaint: Rectal Pain Time Seen by MD: 22:47 Reviewed Notes: Nurses Notes Allergies: Coded Allergies: NO KNOWN ALLERGIES (Unverified , 01/29/23) Home Meds Active Scripts Pantoprazole Sodium Sesquihydr (Pantoprazole Sodium) 40 Mg Tab, 40 MG PO BID@0600,1700 for 30 Days, #60 TAB 2 Refills Prov:LORENZO BENITO MD 05/18/24 Sucralfate (Sucralfate) 1 Gm Tab, 1 GM PO QIDACHS for 30 Days, #120 TAB 2 Refills Prov:LORENZO BENITO MD 05/18/24 Reported Medications Losartan Potassium & Hydrochlo (Hyzaar) 1 Tab Tab, 1 TAB PO DAILY, TAB 05/16/24 Metoprolol Succinate (Metoprolol Succinate Er) 50 Mg Tab, 100 MG PO DAILY for 30 Days, MG 05/14/24 Mode of Arrival: Ambulatory Past Medical History PAST MEDICAL HISTORY: GERD, HTN Past Medical History (Other): Hernia, erosive esophagitis Surgical History: Denies all surgeries JUNIOR SYSTEMS ANALYST History: No Pertinent JUNIOR SYSTEMS ANALYST History Family History Family History: Reviewed,noncontributory to illness Social History Smoker: Non-Smoker Alcohol: Occasionally Drugs: Denies Drug Use Lives In: Home Was a procedure done? Was a procedure done?: No GI differential Dx Differential Diagnosis: Gastritis/PUD, Gastroenteritis, Inflammatory BD, Ischemic Bowel, Anemia X-Ray, Labs, Meds, VS Vital Signs Date Time Temp Pulse Resp B/P (MAP) Pulse Ox O2 Delivery O2 Flow Rate FiO2 03/09/25 22:25 97.8 64 18 130/79 97 97.8 Time of 1ST Reevaluation: 22:42 Reevaluation 1ST: Unchanged Patient Education/Counseling: Need For Follow Up Family Education/Counseling: No Family Present SEPSIS Sepsis Screen Date sepsis recognized/suspect: Mar 09, 2025 Time Sepsis recognized/suspect: 2224 Recent Procedure: No On Antibiotic Therapy: No Respiratory Rate >20: No Heart Rate >90: No Temp<36 C (96.8 F) or >38.3 C: No SBP <90 or MAP <65 mmHG: No New Acute Mental Status Change: No Is the patient on CPAP, BIPAP,: No Physician Orders Complete Blood Count (03/09/25 22:24) Comprehensive Metabolic Panel (03/09/25 22:24) Urinalysis (03/09/25 22:24) Stool Occult Blood (03/09/25 22:24) Lactic Acid W/ Reflex Order (03/09/25 22:24) Ct Ab Pel With Iv Con Only (03/09/25 22:38) Lidocaine Hcl (Glydo) (03/09/25 22:45) Vital Signs Date Time Temp Pulse Resp B/P (MAP) Pulse Ox O2 Delivery O2 Flow Rate FiO2 03/09/25 22:25 97.8 64 18 130/79 97 97.8 Departure 1 Departure Comments Extensive evaluation was performed in attempt to identify or rule out: (See differential diagnosis section) The following tests were ordered, and results were reviewed by me and discussed with patient: (See diagnostic results section) The following test were independently interpreted by me: N/A I reviewed and agreed with the following test results read by other providers: N/A I reviewed the following notes from the pt's past medical encounters: N/A Additional information was gathered from interviewing the following independent historians: N/A Discussion of management or test interpretation with external physician/other qualified health care provider: N/A Addressed [ ]one or more chronic illnesses with severe exacerbation, progression, or side effects of treatment: [ ]an acute or chronic illness that poses a threat to life or bodily function: [ ] Decision regarding hospitalization or escalation of hospital level of care: Risk and benefits of admission for further treatment of patient's condition was considered. Due to patient's current clinical condition, high risk of decline and poor outcome if discharged and need for further inpatient management and monitoring, patient will be admitted to the hospital. Discussed with patient. Drug therapy requiring intensive monitoring for toxicity: N/A Parenteral controlled substances: N/A Decision regarding elective major surgery with identified patient or procedure risk factors: N/A Decision regarding emergency major surgery: N/A Decision not to resuscitate or to de-escalate care because of poor prognosis: N/A Diagnosis or treatment significantly limited by social determinants of health: N/A Decision regarding hospitalization or escalation of hospital level of care: Risks and benefits of admission for further treatment of patient's condition was considered however due to patient's stable condition patient will be discharged to follow up closely or return to care for worsening of condition or inability to follow up. Critical Care Note Critical Care Time?: No Stability Stability form required: No I personally scribed for ARABELLA GARZA MD ([email or web address]) on 03/09/25 at 22:48. Electronically submitted by Liban Alicea ([email or web address]). ARABELLA GARZA MD Mar 09, 2025 22:48
[2025-03-09 23:04] LABS: Hematocrit 37.6 % (36.0-46.0); Hemoglobin 13.1 g/dL (12.2-16.2); Mean Corpuscular Hemoglobin 30.3 pg (28.0-32.0); Mean Corpuscular Volume 86.7 fL (80.0-100.0); Nucleated Red Blood Cells % 0.1 %
[2025-03-09 23:24] LABS: Alanine Aminotransferase 25 U/L (7-40); Albumin 4.6 g/dL (3.2-4.8); Alkaline Phosphatase 107 U/L (46-116); Anion Gap 9 (5-15); BUN/Creatinine Ratio 17.3 (10.0-20.0); Bilirubin, Total 0.5 mg/dL (0.2-1.0); Blood Urea Nitrogen 13 mg/dL (9-23); Calcium 9.3 mg/dL (8.7-10.4); Carbon Dioxide 26 mmol/L (20-31); Chloride 107 mmol/L (98-107); Potassium 4.0 mmol/L (3.5-5.1); Sodium 142 mmol/L (136-145); Total Protein 7.7 g/dL (5.7-8.2)
[2025-03-09 23:25] LABS: Glucose 119 mg/dL (74-106)
--- NOTE | 2025-03-10 08:32 | DVH ---
Exam: CT CT AB PEL WITH IV CON ONLY History: SEVERE RECTAL PAIN; HX GI BLEED COMPARISON: CT CT AB PEL WITH IV CON ONLY on DOS: 03/10/25, CT CT ABD PELVIS W CON-ORAL IV on DOS: 07/17/23, CT CT AB PEL WO CON-NO ORAL OR IV on DOS: 05/13/24 Technique: Multidetector spiral CT of the abdomen and pelvis was performed from lung bases to pubic s ymphysis. Intravenous contrast was administered during this examination. Portal venous imaging was o btained. Axial, coronal and sagittal multiplanar reformats were performed by the technologist on a [employer] workstation. Radiation Dose : 1. Abdomen/Pelvis: CTDIvol 23.86mGy, DLP 1625.53 mGy*cm. Findings: Lung Bases: No acute or significant lung base finding. Normal heart size. No pleural or pericardial effusion. Liver: Hepatomegaly. Gallbladder and Biliary Tree: Unremarkable Spleen: Unremarkable Pancreas: The pancreas is normal in appearance without focal lesions or abnormal enhancement. Adrenal Glands: Unremarkable Kidneys: No hydronephrosis. Bladder: Unremarkable Bowel: The stomach is grossly normal in appearance. Small bowel and colon are normal in caliber and d istribution. Normal appendix is visualized in the right lower quadrant without findings of appendicit is. Ascites: Absent Lymphadenopathy: No mesenteric, retroperitoneal or periportal lymphadenopathy. Abdominal Wall and Mesentery: Unremarkable. Vasculature: The visualized abdominal aorta is normal in size and caliber. Abdominal and pelvic vess els demonstrate normal enhancement. Pelvic Organs: Unremarkable Musculoskeletal: No aggressive focal bony lesions, acute fractures or dislocation. IMPRESSION: No acute abdominal or pelvic finding. Radiation optimization: All CT scans at this facility use at least one of these dose optimization zeferino hniques: automated exposure control mA and/or kV adjustment per patient size (includes targeted exam s where dose is matched to clinical indication) or iterative reconstruction.
== END 2025-03-10 00:49 | disposition left against medical advice (07) ==
LOC: ER 22:15
DX: K62.5 Hemorrhage of anus and rectum (principal); I10 Essential (primary) hypertension; K21.9 Gastro-esophageal reflux disease without esophagitis; Z87.19 Personal history of other diseases of the digestive system; Z79.899 Other long term (current) drug therapy; Y90.9 Presence of alcohol in blood, level not specified
CPT/HCPCS: 36415; 74177; 80053; 83605; 85025